=== PATIENT | female | born 1985 | race Caucasian/White ===

== ENCOUNTER 2025-03-15 13:48 | Outpatient (AMB) | payer MEDICAID, SELFPAY ==
[2025-03-15 13:58] VITALS: BP 160/95; PULSE 97; RESP 18; TEMP 36.2; O2SAT 97; BMI 20.9
--- NOTE | 2025-03-15 13:58 | GYNCLNT_ITS ---
Vital Signs 03/15/25 13:58 Height 1.63 m Height Method Stated Weight 55.338 kg Weight Measurement Method Standing Scale BMI 20.9 BP 160/95 H Blood Pressure Source Automatic Cuff Blood Pressure Location Left Upper Arm Position Sitting Respiration 18 Pulse 97 Pulse Source Monitor Temp 97.2 F Temp Source Oral Pulse Oximetry (%) 97 Oxygen Delivery Method Room Air Allergies/Home Meds Allergies & Medications Allergies No Known Allergies Allergy (Verified 03/15/25 13:59) Medication Reconciliation empagliflozin 25 mg tablet (Jardiance) 25 mg PO DAILY 02/07/23 [History Confirmed 03/15/25] gabapentin 600 mg tablet 600 mg PO DAILY 02/07/23 [History Confirmed 03/15/25] glimepiride 4 mg tablet 4 mg PO DAILY 02/07/23 [History Confirmed 03/15/25] sitagliptin phosphate 50 mg-metformin 1,000 mg tablet (Janumet) 1 tab PO BID 02/07/23 [History Confirmed 03/15/25] hydrocodone 5 mg-acetaminophen 300 mg tablet 1 tab PO Q6H PRN pain #10 tabs 02/10/23 [Rx Confirmed 03/15/25] morphine 15 mg tablet,extended release (MS Contin) 15 mg PO Q12H #14 tabs 02/13/23 [Rx Confirmed 03/15/25] cephalexin 500 mg capsule 500 mg PO TID #30 caps 04/18/23 [Rx Confirmed 03/15/25] Intake Visit Data Collection New Patient or Established: Established Patient (seen at [facility] within 3 years) Reason for Visit:: Abnormal bleeding, desire for surgery, discomfort and tightness in pelvic area Seen by Clinical Staff ONLY (RN/MA): No Silk Printer Required: No Do You Feel Safe at Home: Yes Authorities Contacted: N/A PCP or OBGYN visit in last 3 months: No Hx Now: No Are you currently on any form of Control: No Last menstrual period: 02/12/25 Pain Present Currently: No Pain Scale Used: Valentin-Ramsey/Numerical Pain scale:: 0 Smoking Status Smoking Status: Never smoker 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 1. Little interest or pleasure in doing things: not at all 2. Feeling down, depressed, or hopeless: not at all Total score: 0 PHQ-9 3. Trouble falling or staying asleep, or sleeping too much: Not at all 4. Feeling tired or having little energy: Not at all 5. Poor appetite or overeating: Not at all 6. Feeling bad about yourself - or that you are a failure or have let yourself or your family down: Not at all 7. Trouble concentrating on things, such as reading the newspaper or watching television: Not at all 8. Moving or speaking so slowly that other people could have noticed? - Or the opposite - being so fidgety or restless that you have been moving around a lot more than usual: not at all 9. Thoughts that you would be better off or of hurting yourself in some way: Not at all Total score: 0 If you checked off any problems, how difficult have these problems made it for you to do your work, take care of things at home, or get along with other people?: not difficult at all Source: Developed by Drs. Nguyễn Holland, Zahira Cortez, Get Beal and colleagues, with an educational watson from [employer]. Depression screen completed yes Social History Living Situation History Lives With: Family Housing: Apartment Housing Other:: Lives with and children Tobacco History Smoking Status: Never smoker Second Hand Smoke Exposure: No Alcohol History Alcohol Intake: Never Domestic Abuse History Do You Feel Safe at Home: Yes History of Present Illness ROXANNA Fonseca, a 40-year-old female with a complex medical history including type 2 diabetes, chronic kidney disease, and hypertension, presents for follow-up regarding abnormal uterine bleeding and to discuss surgical options. The patient reports experiencing daily spotting, which she describes as a little spot that decreases slightly each day. She expresses a desire to proceed with surgery for her gynecological issues. The patient reports feeling discomfort and tightness in her lower abdominal area. She has a history of multiple abdominal surgeries, including C-sections and laparoscopic procedures for ovarian cysts and endometriosis, which have resu lted in significant adhesions. Due to these adhesions, the clinician explains that a laparoscopic approach is no longer feasible, and an open abdominal surgery will be necessary to remove the uterus and ovaries. Marian's overall health status appears stable, with no reported changes in her chronic conditions. She continues to manage her anemia, which was mentioned as an ongoing concern. The patient is advised to consult with her primary care physician at [facility] to optimize her health and adjust medications as needed in preparation for the proposed major surgery. 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 Genitourinary: Positive for daily spotting. Musculoskeletal: Positive for tightness in lower abdomen. Exam General General Appearance: alert, in no apparent distress and healthy appearing Head Head exam: atraumatic Neck Neck exam: Present normal inspection and trachea midline Chest Chest inspection: Present normal inspection and symmetric chest wall rise External exam: Present normal external exam; Absent tenderness Neuro Neurological exam: Present oriented X3 Psych Psychiatric exam: Present normal affect and normal mood Office Procedures OB Clinic LOC & Office Proc's Nursing/Assessment Patient Status: Established Patient OB Clinic Nursing Assessment: BP Monitoring, Medication Reconciliation, Update PMH in EMR and Vital Signs OB Clinic Coordination of Care: Complex Care and Chronic Disease 1-5, Consent,records obtained, informed consent, Education Simp Pt/Fam, Lab and Imaging orders, Results/Orders obtained and Staff clarify orders Established Patient Charge Established Patient Point Assignment: 120 Established Patient Point Charge: EP Level 4 (120-155) Assessment & Plan Diagnosis / Problem List (1) Chronic hyperglycemia: Status: Acute (2) Type 2 diabetes mellitus with other diabetic ophthalmic complication: Status: Acute (3) Type 2 diabetes mellitus with diabetic polyneuropathy: Status: Acute (4) Chronic kidney disease, unspecified: Status: Acute (5) Vitamin D deficiency, unspecified: Status: Acute (6) Diverticulosis of large intestine without perforation or abscess without bleeding: Status: Acute (7) Umbilical hernia without obstruction or gangrene: Status: Acute (8) Endometriosis determined by laparoscopy: Status: Acute Plan Marian, a 40-year-old female with multiple medical comorbidities including type 2 diabetes, chronic kidney disease, and hypertension, presents with abnormal uterine bleeding and is considering hysterectomy. Abnormal Uterine Bleeding Assessment: Patient reports daily spotting. Previous laparoscopic surgery revealed significant pelvic adhesions requiring assistance from a general surgeon. Given the complex surgical history and extensive adhesions, a laparoscopic approach is no longer feasible. The patient expresses a desire to proceed with surgery despite the increased complexity. Plan: - Proceed with abdominal hysterectomy and bilateral salpingo-oophorectomy - Consult with general surgeon (Dr. Garcia) for intraoperative assistance - Perform vertical midline incision for improved surgical access - Obtain preoperative clearance from primary care physician - Order preoperative laboratory tests including hormone levels - Await insurance approval for the surgical procedure - Schedule follow-up appointment after PCP clearance for surgical planning Multiple Medical Comorbidities Assessment: Patient has a complex medical history including type 2 diabetes mellitus, chronic kidney disease, hypertension, depression, diabetic retinopathy, diverticulosis, anemia, umbilical hernia, diabetic polyneuropathy, gastroesophageal reflux disease, and liver dysfunction. These conditions increase the perioperative risk and require careful preoperative optimization. Plan: - Refer patient to primary care physician for preoperative medical optimization - Instruct patient to inform PCP about planned major surgery for medication adjustments and further recommendations - Await medical clearance before proceeding with surgical scheduling Intrauterine Device (IUD) Assessment: Patient has an existing IUD in place. Given the planned hysterectomy, removal of the IUD is not urgently required. Plan: - Defer IUD removal until time of hysterectomy
== END 2025-03-15 14:15 | disposition home or self-care (01) ==
LOC: HODSOBC 13:48
PROVIDERS: PCP Family Medicine; Referring Provider Family Medicine; Supervising Provider Obstetrics & Gynecology; Visit Provider Obstetrics & Gynecology
DX: N80.9 Endometriosis, unspecified (principal); N93.9 Abnormal uterine and vaginal bleeding, unspecified; E11.65 Type 2 diabetes mellitus with hyperglycemia; E11.42 Type 2 diabetes mellitus with diabetic polyneuropathy; E11.22 Type 2 diabetes mellitus with diabetic chronic kidney disease; N18.9 Chronic kidney disease, unspecified; E55.9 Vitamin D deficiency, unspecified; K57.30 Diverticulosis of large intestine without perforation or abscess without bleeding; K42.9 Umbilical hernia without obstruction or gangrene; I12.9 Hypertensive chronic kidney disease with stage 1 through stage 4 chronic kidney disease, or unspecified chronic kidney disease; E11.319 Type 2 diabetes mellitus with unspecified diabetic retinopathy without macular edema; Z87.42 Personal history of other diseases of the female genital tract; Z97.5 Presence of (intrauterine) contraceptive device; Z79.84 Long term (current) use of oral hypoglycemic drugs; Z79.899 Other long term (current) drug therapy; Z98.890 Other specified postprocedural states
CPT/HCPCS: 99213; 99214; G0463

== ENCOUNTER 2025-04-19 13:48 | Outpatient (AMB) | payer MEDICAID, SELFPAY ==
[2025-04-19 14:20] VITALS: BP 128/80; PULSE 92; RESP 17; TEMP 36.6; O2SAT 99; BMI 20.5
--- NOTE | 2025-04-19 14:20 | GYNCLNT_ITS ---
Vital Signs 04/19/25 14:20 Height 1.63 m Height Method Stated Weight 54.488 kg Weight Measurement Method Standing Scale BMI 20.5 BP 128/80 Blood Pressure Source Automatic Cuff Blood Pressure Location Right Upper Arm Position Sitting Respiration 17 Pulse 92 Pulse Source Monitor Temp 97.9 F Temp Source Temporal Artery Scan Pulse Oximetry (%) 99 Oxygen Delivery Method Room Air Allergies/Home Meds Allergies & Medications Allergies No Known Allergies Allergy (Verified 04/19/25 16:49) Medication Reconciliation empagliflozin 25 mg tablet (Jardiance) 25 mg PO DAILY 02/07/23 [History Confi rmed 04/19/25] ergocalciferol (vitamin D2) 1,250 mcg (50,000 unit) capsule 50,000 unit PO QWEEK 04/18/25 [History Confirmed 04/19/25] ferrous sulfate 325 mg (65 mg iron) tablet (FeroSul) 325 mg PO QDAY 04/18/25 [History Confirmed 04/19/25] gabapentin 100 mg capsule 200 mg PO Q8H 04/18/25 [History Confirmed 04/19/25] sitagliptin phosphate 50 mg-metformin 1,000 mg tablet (Janumet) 1 tab PO BID 04/18/25 [History Confirmed 04/19/25] vitamin B complex-vitamin C-folic acid 0.8 mg tablet (Nephro-Jacinto) 1 tab PO QDAY 04/18/25 [History Confirmed 04/19/25] Intake Visit Data Collection New Patient or Established: Established Patient (seen at [facility] within 3 years) Reason for Visit:: PRE-OP Seen by Clinical Staff ONLY (RN/MA): No 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 Do You Feel Safe at Home: Yes Authorities Contacted: N/A PCP or OBGYN visit in last 3 months: Yes Date of Last PCP or OBGYN visit: 04/18/25 Hx Now: No Are you currently on any form of Control: No Last menstrual period: 01/04/25 Pain Present Currently: Yes Pain Location: Abdomen Pain Scale Used: Valentin-Ramsey/Numerical Pain scale:: 7 Smoking Status Smoking Status: Former smoker 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 Menstrual regularity: regular Flow: heavy Monthly: Yes How many days does period last: 6 Age at menarche: 9 Currently sexually active: No If not currently sexually active, have you ever been sexually active: Yes 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 1. Little interest or pleasure in doing things: not at all 2. Feeling down, depressed, or hopeless: not at all Total score: 0 PHQ-9 3. Trouble falling or staying asleep, or sleeping too much: Not at all 4. Feeling tired or having little energy: Not at all 5. Poor appetite or overeating: Not at all 6. Feeling bad about yourself - or that you are a failure or have let yourself or your family down: Not at all 7. Trouble concentrating on things, such as reading the newspaper or watching television: Not at all 8. Moving or speaking so slowly that other people could have noticed? - Or the opposite - being so fidgety or restless that you have been moving around a lot more than usual: not at all 9. Thoughts that you would be better off or of hurting yourself in some way: Not at all Total score: 0 If you checked off any problems, how difficult have these problems made it for you to do your work, take care of things at home, or get along with other people?: not difficult at all Source: Developed by Drs. Nguyễn Holland, Zahira Cortez, Get Beal and colleagues, with an educational watson from [employer]. 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 She has been cleared for surgery by Dr. Easley. The surgical approach has been discussed with the patient, explaining that a vertical incision will be made extending from below the belly button. This approach is preferred over a transverse incision to better visualize and address the patient's extensive scar tissue and adhesions from previous surgeries. The surgeon plans to remove the uterus and will attempt to preserve the ovaries, but may remove them if they appear abnormal during the procedure. She has been informed that she will likely stay in the hospital for two nights, with a planned discharge on Friday. However, it was noted that if her recovery progresses well, she might be discharged after one night. The patient has completed the necessary pre-registration process for the upcoming procedure. She is a 40-year-old female with an extensive surgical history including multiple laparoscopies. Review of Systems Review of Systems Systems Reviewed: All systems reviewed, normal except as documented Exam General General Appearance: alert, in no apparent distress and healthy appearing Head Head exam: atraumatic Neck Neck exam: Present normal inspection and trachea midline Chest Chest inspection: Present normal inspection and symmetric chest wall rise External exam: Present normal external exam; Absent tenderness Neuro Neurological exam: Present oriented X3 Psych Psychiatric exam: Present normal affect and normal mood Office Procedures OB Clinic LOC & Office Proc's Nursing/Assessment Patient Status: Established Patient OB Clinic Nursing Assessment: Medication Reconciliation, Update PMH in EMR and Vital Signs OB Clinic Coordination of Care: Complex Care and Chronic Disease 1-5, Consent,records obtained, informed consent, Education Simp Pt/Fam and Staff clarify orders Established Patient Charge Established Patient Point Assignment: 85 Established Patient Point Charge: EP Level 3 (80-115) Assessment & Plan Diagnosis / Problem List (1) Abnormal uterine and vaginal bleeding, unspecified: Status: Acute (2) Pelvic and perineal pain: Status: Acute (3) Umbilical hernia without obstruction or gangrene: Status: Acute Plan Scheduled Total Abdominal Hysterectomy Plan: - Perform total abdominal hysterectomy on 04/21/2025. - Utilize vertical midline incision for better visualization and dissection. - Attempt to preserve ovaries, remove if pathology noted intraoperatively. - Consult Dr. Garcia (general surgery) intraoperatively if needed. - Anticipate 2-night hospital stay, with possible discharge after one night if patient progresses well. - Patient to arrive NPO (except for coffee, which is permitted). - Discharge anticipated for Friday (04/23/2025).
== END 2025-04-19 15:18 | disposition home or self-care (01) ==
LOC: HODSOBC 13:48
PROVIDERS: PCP Obstetrics & Gynecology; Referring Provider Obstetrics & Gynecology; Supervising Provider Obstetrics & Gynecology; Visit Provider Obstetrics & Gynecology
DX: N93.9 Abnormal uterine and vaginal bleeding, unspecified (principal); K42.9 Umbilical hernia without obstruction or gangrene; R10.2 Pelvic and perineal pain
CPT/HCPCS: 99213; G0463

== ENCOUNTER 2025-04-21 07:05 | Inpatient (IN) | payer MEDICAID, SELFPAY ==
--- NOTE | 2025-04-18 07:00 | EKG_ITS ---
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
[2025-04-18 11:31] VITALS: BMI 20.7
[2025-04-18 12:38] LABS: Basophils % (Auto) 1 % (0-2.5); Eosinophils # (Auto) 0.3 Thou/mm3 (0.0-0.5); Eosinophils % (Auto) 5 % (0-10); Hematocrit 26.6 % (36.0-46.0); Immature Granulocytes % (Auto) 0 % (0-0); Immature Granulocytes Auto 0.02 Thou/mm3 (0.00-0.00); Lymphocytes % (Auto) 28 % (10-50); Mean Corpuscular HGB Conc 32.7 g/dl (31.0-37.0); Mean Corpuscular Hemoglobin 30.2 pg (25.0-35.0); Mean Corpuscular Volume 92 fL (80-100); Monocytes # (Auto) 0.5 Thou/mm3 (0.0-0.8); Monocytes % (Auto) 7 % (0-12); Neutrophils # (Auto) 4.1 Thou/mm3 (1.8-7.7); Neutrophils % (Auto) 60 % (37-80); Nucleated Red Blood Cell % 0 /100 WBC (0); Platelet Count 261 Thou/mm3 (140-440); RDW Standard Deviation 47.8 fL (36.4-46.3); Red Blood Count 2.88 Miln/mm3 (4.00-5.20)
[2025-04-18 12:46] LABS: Alanine Aminotransferase 16 U/L (10-49); Albumin, Serum 4.3 gm/dL (3.5-5.0); Alkaline Phosphatase 56 U/L (46-116); Anion Gap 10 (7-16); Aspartate Amino Transferase 18 U/L (0-34); BUN/Creatinine Ratio 16 Ratio (12-20); Bilirubin,Total 0.3 mg/dL (0.3-1.2); Blood Urea Nitrogen 21 mg/dL (9-23); Calcium 8.9 mg/dL (8.3-10.6); Calcium (Corrected) 8.9 mg/dL (8.5-10.1); Carbon Dioxide 23.5 mMol/L (20.0-31.0); Chloride 109 mMol/L (98-107); Creatinine (Component) 1.3 mg/dL (0.6-1.3); Estimated Creatinine Clearance 48.7 mL/min (>60); Globulin 2.1 gm/dL (2.3-3.5); Glucose 85 mg/dL (74-106); Osmolality,Calculated 285 (275-295); Potassium 5.1 mMol/L (3.4-5.1); Sodium 142 mMol/L (136-145); Total Protein 6.4 gm/dL (5.7-8.2); eGFR 53 See Note
[2025-04-18 12:47] LABS: HCG,Qualitative Serum Negative
[2025-04-18 13:05] LABS: Hemoglobin 8.7 g/dL (12.0-16.0)
[2025-04-21] VITALS (25 sets, daily range): BP systolic 106–183; BP diastolic 73–111; PULSE 88–110; RESP 12–20; TEMP 36.1–37.1; O2SAT 98–100; BMI 20.2; BMI 19.6
--- NOTE | 2025-04-21 13:26 | SUR.PHASEI ---
1326: Pt. AAOx4, pt. hypertensive, hydralazine given at bedside by anesthesia provider, breathing unlabored, complaint of pain, complaint of nausea, will medicate pt., dressing to ABD CDI, no active bleed noted, goldstein catheter in place draining clear yellow urine, peripad in place CDI, report recieved from MD Nelson and Vinay FLORES.
--- NOTE | 2025-04-21 13:37 | ESOP_ITS ---
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 Identity was confirmed using two patient identifiers, and she was placed on the operating table. General anesthesia was administered. The patient was secured and positioned in the supine position. The abdomen and perineum were prepped and draped in the usual sterile fashion. A Adames catheter was placed for continuous drainage. A surgical timeout was completed. A vertical midline skin incision was made with a scalpel and carried through the subcutaneous fat to the rectus fascia. The rectus fascia was incised in the midline and extended superiorly and inferiorly using Swanson scissors. The fascia was then dissected off the underlying rectus muscles, and the rectus bellies were to identify the peritoneum, which was entered bluntly. The peritoneal opening was gently stretched to allow access into the abdominal cavity. An Charlie O-ring retractor was placed and the bowel was packed out of the operative field. Upon entering the peritoneal cavity, a significant amount of intraperitoneal adhesions involving loops of bowel, thickened peritoneum, and adnexal structures was encountered. Approximately 40 minutes were spent carefully dissecting these adhesions to safely mobilize the bowel and adnexa in order to access the uterus. The uterus was then grasped with a double-tooth tenaculum. A significant amount of bladder adhesion was noted, and dissection was carried out to divide the bladder adhesions and expose the uterovesical peritoneum. With the uterus on traction, dissection began on the right side. The utero- ovarian ligament was divided. The fallopian tube was dissected and divided separately. The round ligament was divided, and both anterior and posterior leaves of the broad ligament were . The anterior leaf was dissected to the bladder reflection to create the bladder flap, and the posterior leaf was extended down to the uterosacral ligament. Subsequent steps involved skeletonizing, occluding, and dividing the uterine artery, progressing down to the cervix. The same dissection was performed on the contralateral side. Once the cervix was reached, a pair of Ramon clamps were placed across the cervix, and the uterus was amputated and sent to pathology. The vaginal angles were tagged using 0 Vicryl sutures. The vaginal cuff was closed using 0 Vicryl in a running fashion, with the angles tied together to reinforce the uterosacral ligaments. At this point, significant bleeding was noted from the vaginal stump. Hemostasis was achieved with [id number] sutures, and the bladder peritoneum was overlaid and secured over the vaginal cuff using 3-0 Vicryl. The cuff was copiously irrigated and inspected for hemostasis. Surgicel was placed for reinforcement. All instruments were withdrawn, bowel packing was removed, and the Charlie retractor was taken out. The peritoneum was closed using 2-0 Vicryl. Rectus mus cles were reapproximated with 3-0 Vicryl. The rectus fascia was closed in a running fashion using 0 Vicryl. The subcutaneous tissue was irrigated, and the fat layer was closed with 3-0 plain gut. The skin was closed with kelly. The skin was cleaned and a sterile pressure dressing applied. The patient was undraped, general anesthesia was reversed, and she was transferred to recovery in stable and awake condition. She tolerated the procedure well, and no acute complications were encountered. Instrument, sponge, and lap counts were correct ?2. Specimen: uterus, left tube and right tube Estimated blood loss (ml): 300 Complications: none Surgical staff Operation Date: 04/21/25 10:45 <No data on this case meets the specified criteria> Diagnosis Discharge Diagnosis (1) Abnormal uterine and vaginal bleeding, unspecified: Status: Acute (2) Pelvic and perineal pain: Status: Acute (3) Umbilical hernia without obstruction or gangrene: Status: Acute (4) Diverticulosis of large intestine without perforation or abscess without bleeding: Status: Acute (5) Chronic kidney disease, unspecified: Status: Acute Problem List Completed Was Problem List Reviewed/Reconciled?: Yes
--- NOTE | 2025-04-21 13:40 | SUR.OPER ---
Late entry: Pt to OR-3 from [facility] with PRBC unit hanging and infusing. Unit was continued and completed in O.R.
[2025-04-21] MEDS: METOCLOPRAMIDE INJ 5 MG/ML VIAL 2 ML 7.5 MG IVP (13:43)
[2025-04-21] MEDS: HYDROmorphone INJ 2 MG/ML VIAL 0.5 MG IVP ×3 (13:50→14:31)
[2025-04-21] MEDS: KETOROLAC INJ 30 MG/ML VIAL 15 MG IVP (14:01)
[2025-04-21] MEDS: SODIUM CHLORIDE 0.9% 1000 ML 1,000 ML 200 ML IV ×2 (14:06→18:37)
[2025-04-21 14:35] LABS: Basophils # (Auto) 0.1 Thou/mm3 (0.0-0.2); Basophils % (Auto) 0 % (0-2.5); Eosinophils # (Auto) 0.2 Thou/mm3 (0.0-0.5); Eosinophils % (Auto) 1 % (0-10); Hematocrit 31.6 % (36.0-46.0); Hemoglobin 10.5 g/dL (12.0-16.0); Immature Granulocytes % (Auto) 1 % (0-0); Immature Granulocytes Auto 0.08 Thou/mm3 (0.00-0.00); Lymphocytes # (Auto) 2.3 Thou/mm3 (1.0-4.8); Lymphocytes % (Auto) 14 % (10-50); Mean Corpuscular HGB Conc 33.2 g/dl (31.0-37.0); Mean Corpuscular Hemoglobin 30.3 pg (25.0-35.0); Mean Corpuscular Volume 91 fL (80-100); Monocytes # (Auto) 0.6 Thou/mm3 (0.0-0.8); Monocytes % (Auto) 3 % (0-12); Neutrophils # (Auto) 13.7 Thou/mm3 (1.8-7.7); Neutrophils % (Auto) 81 % (37-80); Nucleated Red Blood Cell % 0 /100 WBC (0); Platelet Count 231 Thou/mm3 (140-440); RDW Standard Deviation 46.4 fL (36.4-46.3); Red Blood Count 3.47 Miln/mm3 (4.00-5.20); White Blood Count 16.9 Thou/mm3 (3.6-11.0)
[2025-04-21] MEDS: fentaNYL CIT INJ 50 mCg/ML AMP 2ML IVP ×2 (14:44→16:05)
--- NOTE | 2025-04-21 16:30 | SUR.PHASEI ---
1630: Pt. AAOx4, vitals stable, breathing unlabored, no complaint of pain or nausea, dressing to ABD CDI, no active bleed noted, ABD Binder in place, goldstein catheter in place draining clear yellow urine, pt. tolerated bites of cristiano well, gave report to Erma FLORES prior to transfer to room 380. Family made aware of transfer to room, pt. transferred with all personal belongings.
[2025-04-21] MEDS: ONDANSETRON INJ 2 MG/ML INJ 2 ML 4 MG IV (16:55)
[2025-04-21] MEDS: ACETAMINOPHEN IVPB 1,000 MG/100 ML VIAL 250 MG IV ×2 (18:36→23:57)
[2025-04-21] MEDS: ceFAZolin/D5W 2 GM IV 2 GM/100 ML BAG IV (19:29)
[2025-04-21] MEDS: HYDROMORPHONE HCL 2 MG TABLET PO (20:23)
[2025-04-21] MEDS: GABAPENTIN 100 MG CAPSULE 200 MG PO (21:37)
[2025-04-22] VITALS (16 sets, daily range): BP systolic 131–179; BP diastolic 81–113; PULSE 100–114; RESP 16–97; TEMP 36.2–36.9; O2SAT 97–99
[2025-04-22] MEDS: HYDROMORPHONE HCL 2 MG TABLET PO ×2 (03:11→08:35)
[2025-04-22] MEDS: ceFAZolin/D5W 2 GM IV 2 GM/100 ML BAG IV ×3 (03:15→20:05)
[2025-04-22] MEDS: SODIUM CHLORIDE 0.9% 1000 ML 1,000 ML 200 ML IV (03:21)
[2025-04-22] MEDS: ONDANSETRON INJ 2 MG/ML INJ 2 ML 4 MG IV ×3 (03:50→16:25)
[2025-04-22] MEDS: GABAPENTIN 100 MG CAPSULE 200 MG PO ×2 (05:46→13:48)
[2025-04-22] MEDS: ACETAMINOPHEN IVPB 1,000 MG/100 ML VIAL 250 MG IV ×2 (05:47→13:49)
[2025-04-22 05:51] LABS: Basophils % (Auto) 0 % (0-2.5); Eosinophils % (Auto) 0 % (0-10); Hematocrit 23.6 % (36.0-46.0); Immature Granulocytes % (Auto) 1 % (0-0); Immature Granulocytes Auto 0.07 Thou/mm3 (0.00-0.00); Lymphocytes # (Auto) 1.1 Thou/mm3 (1.0-4.8); Lymphocytes % (Auto) 7 % (10-50); Mean Corpuscular HGB Conc 33.9 g/dl (31.0-37.0); Mean Corpuscular Volume 92 fL (80-100); Monocytes # (Auto) 1.2 Thou/mm3 (0.0-0.8); Monocytes % (Auto) 8 % (0-12); Neutrophils # (Auto) 12.6 Thou/mm3 (1.8-7.7); Neutrophils % (Auto) 84 % (37-80); Nucleated Red Blood Cell % 0 /100 WBC (0); Platelet Count 181 Thou/mm3 (140-440); RDW Standard Deviation 47.4 fL (36.4-46.3); Red Blood Count 2.58 Miln/mm3 (4.00-5.20); White Blood Count 14.9 Thou/mm3 (3.6-11.0)
[2025-04-22 06:01] LABS: Anion Gap 9 (7-16); BUN/Creatinine Ratio 15 Ratio (12-20); Blood Urea Nitrogen 19 mg/dL (9-23); Calcium 7.5 mg/dL (8.3-10.6); Carbon Dioxide 17.6 mMol/L (20.0-31.0); Chloride 114 mMol/L (98-107); Creatinine (Component) 1.3 mg/dL (0.6-1.3); Estimated Creatinine Clearance 47.6 mL/min (>60); Glucose 133 mg/dL (74-106); Osmolality,Calculated 285 (275-295); Potassium 4.8 mMol/L (3.4-5.1); Sodium 141 mMol/L (136-145); eGFR 53 See Note
--- NOTE | 2025-04-22 06:21 | PC.NURSE ---
Total urine output for this shift is 650 ml. Adames catheter removed at 0620, Pt tolerated well.
[2025-04-22] MEDS: FERROUS SULF 325 MG TABLET PO (08:35)
[2025-04-22] MEDS: VIT B12/Vit C/FA (Nephrovite) TABLET 1 TAB PO (08:35)
[2025-04-22] MEDS: DOCUSATE SOD 100 MG CAPSULE PO (08:35)
[2025-04-22] MEDS: KETOROLAC INJ 30 MG/ML VIAL IVP (10:17)
--- NOTE | 2025-04-22 10:58 | CHAP ---
Patient expressed gratitude for visit and prayer. Visited with Ezekiel who spoke Micronesian and prayed.
--- NOTE | 2025-04-22 11:28 | PC.SS ---
Marian Barboza is a 40-year-old female admitted to Med Surg for [facility] [id number]. SS conducted bedside contact with the patient to complete initial assessment and to discuss discharge planning. Role and reason explained. Patient confirmed demographic information. Patient identifies dtr Heidy Villegasus [phone] as her surrogate decision maker. Pt states she is able to complete all ADL?s independently. No need for any source of DME. Pts PCP is Dr. Chang [facility]. Pharmacy of choice is [facility] in [place]. Discharge options discussed and the pt wishes to return home.? Family will provide transportation upon DC. No further intervention required at this time, social insurance administrator would be available to address any further concerns. DC Plan: Home Contact: Heidy Long Address: Confirmed on face sheet PCP: Elvi
--- NOTE | 2025-04-22 12:47 | PD.GYNPROG ---
Documentation for date of: 04/22/25 [employer] Subjective Subjective Interval history: Patient doing well this morning. Evaluated at bedside. Has significant pain even on the current regimen, reports minimal appetite. RBC and FFP was ordered yesterday has still not been transfused Morning hemoglobin is 8.5 which is appropriate to compensate for her postoperative blood loss Urine output good and Adames catheter has been removed Exam Vital Signs Temp Pulse Resp BP Pulse Ox O2 Del Method O2 Flow Rate 98.0 F 107 H 17 159/102 H 98 Room Air 2 04/22/25 10:56 04/22/25 10:56 04/22/25 10:41 04/22/25 10:56 04/22/25 10:56 04/22/25 08:00 04/22/25 09:45 Constitutional Constitutional: no acute distress Routine HEENT Exam Head: Present normocephalic and atraumatic Eye: Present EOMI and PERRL ENT: Present mucous membranes moist Routine Neck Exam Neck: Present supple and trachea midline Routine Respiratory Exam Respiratory: Present chest non-tender, lungs clear, normal breath sounds and no resp distress Routine Cardiovascular Exam Cardiovascular: Present RRR Routine Abdominal Exam Abdominal: Present soft and normoactive bowel sounds Routine Extremities Exam Extremities: Present full ROM Routine Skin Exam Skin: Present intact and dry Routine Neurological Exam Neurological: Present alert, oriented X3 and CN II-XII intact Routine Psychiatric Exam Psychiatric: Present normal affect and normal thought process Urinary Catheter Management Cath placed during this visit: no [employer] - PN: Obj Data Labs 04/22/25 05:07 04/22/25 05:07 Labs: Laboratory Results - last 24 hr 04/20/25 04/21/25 04/22/25 12:48 13:50 05:07 WBC 16.9 H D 14.9 H RBC 3.47 L 2.58 L Hgb 10.5 L D 8.0 L D Hct 31.6 L 23.6 L MCV 91 92 MCH 30.3 31.0 MCHC 33.2 33.9 RDW Std Deviation 46.4 H 47.4 H Plt Count 231 D 181 D Neut % (Auto) 81 H 84 H Lymph % (Auto) 14 7 L [place] % (Auto) 3 8 Eos % (Auto) 1 0 Baso % (Auto) 0 0 Neut # (Auto) 13.7 H 12.6 H Lymph # (Auto) 2.3 1.1 [place] # (Auto) 0.6 1.2 H Eos # (Auto) 0.2 0.0 Baso # (Auto) 0.1 0.0 Immature Gran # (Auto) 0.08 H 0.07 H Absolute Nucleated RBC 0.00 0.00 Immature Gran % 1 H 1 H Nucleated RBC % 0 0 Sodium 141 Potassium 4.8 Chloride 114 H Carbon Dioxide 17.6 L Anion Gap 9 BUN 19 Creatinine 1.3 Estim Creat Clear Calc 47.6 L eGFR 53 L BUN/Creatinine Ratio 15 Glucose 133 H Calculated Osmolality 285 Calcium 7.5 L Blood Type O Positive Antibody Screen NEGATIVE Crossmatch See Detail Blood Bank Wristband ID Yes Blood Bank Comment FFP Ready [employer] - A/P Assessment and plan (1) Abnormal uterine and vaginal bleeding, unspecified: Status: Acute Assessment and plan: Patient is postoperative day #1 status post vertical laparotomy for total abdominal hysterectomy and bilateral salpingectomy Patient has multiple medical comorbidities, she has significant amount of pain Will encourage out of bed and ambulation, will get physical therapy involved as needed Continue to monitor bowel function, possible discharge tomorrow or the day after depending on how she progresses (2) Pelvic and perineal pain: Status: Acute (3) Umbilical hernia without obstruction or gangrene: Status: Acute (4) Diverticulosis of large intestine without perforation or abscess without bleeding: Status: Acute (5) Chronic kidney disease, unspecified: Status: Acute Postoperative Procedures: Procedures Operation Date: 04/21/25 10:45 Actual Procedure Side Surgeon p Total abdominal hysterectomy with left salpingectomy Left Octavio Reyes MD Time Spent With Patient Time: Total time spent is greater than 50% in coordination of care (as documented) at patient's floor/unit and/or counseling patient: Time with patient: less than 15 minutes
[2025-04-22] MEDS: hydrALAZINE HCL 10 MG TABLET 5 MG PO (14:29)
--- NOTE | 2025-04-22 14:35 | PC.NURSE ---
notified of pts BP 179/113 HR 103. new order received.
--- NOTE | 2025-04-22 14:58 | PC.SS ---
Rounding: Possible DC over weekend, encourage ambulation, will DC home upon DC
[2025-04-22] MEDS: HYDROmorphone INJ 2 MG/ML VIAL IVP ×2 (15:43→21:08)
--- NOTE | 2025-04-22 16:03 | ESCONSULT_ITS ---
<Statement entered by Summer Joy MD - 04/26/25 08:57> I reviewed above note and agree with findings and plans. I have also personally examined the patient with medicine team and went over assessment and plan with medical team including nutrition intern and resident physician. HPI Data of Consult Requesting Physician: Octavio Reyes MD Admitting Provider: Octavio Reyes MD Attending Provider: Octavio Reyes MD Primary Care Provider: Cory Chang MD Consult Narrative Reason for consult: management of HTN History of present illness: Ms. Acosta is a 40 year old female past medical history significant for type 2 diabetes, hypertension, anemia and endometriosis. Patient was admitted for total abdominal hysterectomy on 04/21/2025. Patient is postop day 1 of total abdominal hysterectomy with bilateral salpingectomy. Patient is currently being managed by [facility] team including Dr. Reyes. Patient is in postoperative pain being managed with IV and oral pain meds by her primary team. Other than postoperative pain patient does not have any complaints states that she is feeling better tolerating oral diet. Per patient she has history of hypertension and was on amlodipine 10 mg daily however for the past 1 month she stopped taking the medication because she was told by her primary care that she no longer needs it. For diabetes patient is currently taking Jardiance and Janumet. Patient states she also takes ferrous sulfate 325 mg daily. Patient denies any chest pain, pressure, palpitations or shortness of breath. Hospitalist team is consulted for further management of primary hypertension. PMH: Non-insulin dependent type 2 diabetes, primary hypertension, anemia and endometriosis PSH: Left hip surgery, total hysterectomy with salpingectomy POD 1 Social history: Denies alcohol, tobacco or illicit drug use Home Meds: Amlodipine 10 mg daily (patient have not taken it for 1 month), Jardiance and Janumet cc:: cc: Octavio Reyes MD Review of Systems Review of Systems Systems Reviewed: All systems reviewed, normal except as documented Exam Vital Signs Temp Pulse Resp BP Pulse Ox O2 Del Method O2 Flow Rate 98.2 F 103 H 18 179/113 H 98 Room Air 2 04/22/25 14:06 04/22/25 14:29 04/22/25 14:06 04/22/25 14:29 04/22/25 12:00 04/22/25 12:00 04/22/25 09:45 Narrative Exam GENERAL: A&Ox3, middle age female, Awake and cooperate, Not in acute distress however appears to be in discomfort NEURO: no focal neurological deficits noted HEENT: Atraumatic, Normocephalic. mucous membranes moist. Eyes open, symmetrical, & clear HEART: Normal Heart Sounds LUNGS: Clear to auscultation with no wheezing or crackles. ABDOMEN: abdomen have post surgical bandage, abdomen is soft SKIN: No Rash or ecchymoses EXTREMITIES: No edema, tenderness, able to move all 4 extremities, pedal pulses palpated Results Labs 04/22/25 05:07 04/22/25 05:07 Labs: Short CBC 04/22/25 Range/Units 05:07 WBC 14.9 H (3.6-11.0) Thou/mm3 Hgb 8.0 L D (12.0-16.0) g/dL Hct 23.6 L (36.0-46.0) % Plt Count 181 D (140-440) Thou/mm3 BMP 04/22/25 05:07 Sodium 141 Potassium 4.8 Chloride 114 H Carbon Dioxide 17.6 L BUN 19 Creatinine 1.3 Glucose 133 H Calcium 7.5 L Quality Measures Quality Measures VTE prophylaxis Medications Home Medications and Allergies Home Medications ?Medication ?Instructions ?Recorded ?Confirmed ?Type empagliflozin 25 mg tablet 25 mg PO DAILY 02/07/23 History (Jardiance) ergocalciferol (vitamin D2) 1,250 50,000 unit PO QWEEK 04/18/25 04/19/25 History mcg (50,000 unit) capsule ferrous sulfate 325 mg (65 mg 325 mg PO QDAY 04/18/25 04/19/25 History iron) tablet (FeroSul) gabapentin 100 mg capsule 200 mg PO Q8H 04/18/2504/19 History sitagliptin phosphate 50 1 tab PO BID 04/18/25 History mg-metformin 1,000 mg tablet (Janumet) vitamin B complex-vitamin C-folic 1 tab PO QDAY 04/19/25 History acid 0.8 mg tablet (Nephro-Jacinto) Allergies Allergy/AdvReac Type Severity Reaction Status Date / Time No Known Allergies Allergy Verified 04/21/25 07:58 Visit Medications Diphenhydramine HCl (Diphenhydramine Inj 50 Mg/Ml Vial) 25 mg IV Q2HR PRN PRN Reason: ITCHING Stop: 05/21/25 12:13 Docusate Sodium (Docusate Sod 100 Mg Capsule) 100 mg PO QDAY [facility] Stop: 05/22/25 08:59 Last Admin: 04/22/25 08:35 Dose: 100 mg Ergocalciferol (Ergocalciferol (Vit D2) 50,000 Unit Cap (Non-Formulary)) 50,000 unit PO QWEEK [facility] Stop: 05/28/25 08:59 Ferrous Sulfate (Ferrous Sulf 325 Mg Tablet) 325 mg PO QDAY [facility] Stop: 05/22/25 08:59 Last Admin: 04/22/25 08:35 Dose: 325 mg Gabapentin (Gabapentin 100 Mg Capsule) 200 mg PO Q8HR [facility] Stop: 05/21/25 12:14 Last Admin: 04/22/25 13:48 Dose: 200 mg Hydromorphone HCl (Hydromorphone Inj 2 Mg/Ml Vial) 2 mg IVP Q3HR PRN PRN Reason: PAIN SCALE 7-10 (Severe Stop: 04/26/25 12:13 Last Admin: 04/22/25 15:43 Dose: 2 mg Hydromorphone HCl (Hydromorphone Hcl 2 Mg Tablet) 2 mg PO Q4HR PRN PRN Reason: PAIN SCALE 4-6 (Moderate Stop: 04/26/25 12:13 Last Admin: 04/22/25 08:35 Dose: 2 mg Promethazine HCl 25 mg/ Sodium (Chloride) 51 mls @ 2.5 mls/min IV Q6HR PRN PRN Reason: NAUSEA OR VOMITING Stop: 05/21/25 12:13 Cefazolin Sodium (Ancef 2gm Ivpb) 2 gm in 100 mls @ 100 mls/hr IV Q8H [facility] Stop: 04/28/25 19:29 Last Admin: 04/22/25 13:49 Dose: 100 mls/hr Home Medication- Please Speak With Patient Caregiver To Have Rx Brought To [facility] 25 mg PO DAILY [facility] Stop: 05/22/25 08:59 Last Admin: 04/22/25 08:36 Dose: Not Given Home Medication- Please Speak With Patient Caregiver To Have Rx Brought To [facility] 1 tab PO BID [facility] Stop: 05/21/25 20:59 Last Admin: 04/22/25 08:36 Dose: Not Given Ondansetron HCl (Ondansetron Inj 2 Mg/Ml Inj 2 Ml) 4 mg IV Q6HR PRN PRN Reason: NAUSEA OR VOMITING Stop: 05/21/25 12:13 Last Admin: 04/22/25 10:18 Dose: 4 mg Vitamin B Complex/Vit C/Folic Acid (Vit B12/Vit C/Fa (Nephrovite) Tablet) 1 tab PO QDAY DEVEN Stop: 05/22/25 08:59 Last Admin: 04/22/25 08:35 Dose: 1 tab Discontinued Medications Fentanyl Citrate (Fentanyl Cit Inj 50 Mcg/Ml Amp 2ml) 50 mcg IVP Q5MIN PRN PRN Reason: PAIN SCALE 4-10(Mod-Sev Stop: 04/21/25 14:56 Last Admin: 04/21/25 16:05 Dose: 50 mcg Hydralazine HCl (Hydralazine Inj 20 Mg/Ml Vial) 5 mg IV Q20MIN PRN PRN Reason: SEE COMMENTS Stop: 04/21/25 14:56 Hydralazine HCl (Hydralazine Hcl 10 Mg Tablet) 5 mg PO X1 ONE Stop: 04/22/25 14:19 Last Admin: 04/22/25 14:29 Dose: 5 mg Hydromorphone HCl (Hydromorphone Inj 2 Mg/Ml Vial) 0.5 mg IVP Q10MIN PRN PRN Reason: PAIN SCALE 4-10(Mod-Sev Stop: 04/21/25 14:56 Last Admin: 04/21/25 14:31 Dose: 0.5 mg Lactated Ringer's (Lactated Ringers) 1,000 mls @ 20 mls/hr IV .Q24H ONE Stop: 04/22/25 05:59 Sodium Chloride (Ns) 1,000 mls @ 20 mls/hr IV .Q24H ONE Stop: 04/22/25 05:59 Last Admin: 04/21/25 14:41 Dose: Not Given Acetaminophen (Ofirmev Inj) 1,000 mg in 100 mls @ 250 mls/hr IV Q6HR DEVEN Stop: 04/22/25 12:23 Last Infusion: 04/22/25 14:13 Dose: Infused Sodium Chloride (Ns) 1,000 mls @ 200 mls/hr IV .Q5H DEVEN Stop: 05/21/25 12:14 Last Admin: 04/22/25 03:21 Dose: 200 mls/hr Ketorolac Tromethamine (Ketorolac Inj 30 Mg/Ml Vial) 15 mg IVP X1 ONE Stop: 04/21/25 13:58 Last Admin: 04/21/25 14:01 Dose: 15 mg Ketorolac Tromethamine (Ketorolac Inj 30 Mg/Ml Vial) 30 mg IVP X1 ONE Stop: 04/22/25 10:11 Last Admin: 04/22/25 10:17 Dose: 30 mg Magnesium Hydroxide (Milk Of Magnesia Susp 30 Ml Udc) 30 ml PO X1 ONE Stop: 04/21/25 12:15 Last Admin: 04/21/25 18:20 Dose: Not Given Meperidine HCl (Meperidine Inj 50 Mg/Ml Vial) 12.5 mg IVP Q5M PRN PRN Reason: SHIVERING Stop: 04/21/25 14:56 Metoclopramide HCl (Metoclopramide Inj 5 Mg/Ml Vial 2 Ml) 7.5 mg IVP X1 PRN; Protocol PRN Reason: NAUSEA OR VOMITING Stop: 04/21/25 14:58 Last Admin: 04/21/25 13:43 Dose: 7.5 mg Metoprolol Tartrate (Metoprolol Tartrate Inj 1 Mg/Ml Amp 5 Ml) 1 mg IVP Q5MIN PRN PRN Reason: TACHYCARDIA Stop: 04/21/25 14:58 Midazolam HCl (Midazolam Inj 1 Mg/Ml Vial 2 Ml) 1 mg IVP Q5MIN PRN PRN Reason: ANXIETY Stop: 04/21/25 14:56 Assessment & Plan Plan Ms. Acosta is a 40 year old female past medical history significant for type 2 diabetes, hypertension, anemia and endometriosis. Patient was admitted for total abdominal hysterectomy on 04/21/2025. Patient is postop day 1 of total abdominal hysterectomy with bilateral salpingectomy. Hospitalist team is consulted for further management of primary hypertension. #Primary Hypertension - Patient's blood pressure is 179/113 and heart rate 103 - Patient received hydralazine 5 mg p.o. x 1 - Will resume patient's home amlodipine 10 mg daily and continue to monitor blood pressure #[id number] type 2 diabetes - Blood glucose 133 and fingerstick is 117 - Patient's home Jardiance and Janumet is resumed by primary team - Will continue to monitor daily blood glucose and Accu-Cheks AC # Endometriosis status post total hysterectomy with salpingectomy POD 1 - Patient underwent total abdominal hysterectomy with bilateral salpingectomy on 04/21/[address] Reyes - Pain control is ordered - Remainder management as per primary team #Acute anemia #Normocytic anemia - Hemoglobin is 8.0, hematocrit 23.6, MCV 92 - Acute anemia is likely secondary to routine IntraOp blood loss plus hemodilution as patient received approximately 3 L of fluids -There are no signs of active bleeding from surgical site, no signs of intra- abdominal bleeding. -Will continue to monitor daily CBC, if Hgb drops <7, will transfuse pRBCs - Primary team resume patient's home ferrous sulfate 325 mg Health Maintenance Disposition: Medsurg POD1 DVT Prophylaxis: SCD QSHIFT GI Prophylaxis: Not indicated Diet: regular diet Lines: Peripheral lines Code status: Full Assessment and plan discussed with my attending physician Dr. Rufino Hi (PGY-1)- Internal medicine resident
[2025-04-22] MEDS: amLODIPine BESYLATE 5 MG TABLET 10 MG PO (17:27)
[2025-04-22] MEDS: JARDIANCE (EMPAGLIFLOZIN) 25 MG TABLET PO (18:02)
[2025-04-22] MEDS: PROMETHAZINE INJ 25 MG in SODIUM CHLORIDE 0.9% 50 ML IV (19:21)
[2025-04-22] MEDS: LOSARTAN POTASSIUM 25 MG TABLET PO (20:14)
[2025-04-23] VITALS (11 sets, daily range): BP systolic 124–153; BP diastolic 80–96; PULSE 100–108; RESP 16–99; TEMP 36.3–37; O2SAT 93–96
[2025-04-23] MEDS: ceFAZolin/D5W 2 GM IV 2 GM/100 ML BAG IV ×3 (03:33→19:27)
[2025-04-23] MEDS: GABAPENTIN 100 MG CAPSULE 200 MG PO ×3 (05:40→20:59)
[2025-04-23 05:52] LABS: Basophils % (Auto) 0 % (0-2.5); Eosinophils % (Auto) 0 % (0-10); Hematocrit 29.1 % (36.0-46.0); Immature Granulocytes % (Auto) 0 % (0-0); Immature Granulocytes Auto 0.03 Thou/mm3 (0.00-0.00); Lymphocytes # (Auto) 1.3 Thou/mm3 (1.0-4.8); Lymphocytes % (Auto) 12 % (10-50); Mean Corpuscular HGB Conc 34.4 g/dl (31.0-37.0); Mean Corpuscular Hemoglobin 30.6 pg (25.0-35.0); Mean Corpuscular Volume 89 fL (80-100); Monocytes # (Auto) 0.8 Thou/mm3 (0.0-0.8); Monocytes % (Auto) 8 % (0-12); Neutrophils # (Auto) 8.2 Thou/mm3 (1.8-7.7); Neutrophils % (Auto) 79 % (37-80); Nucleated Red Blood Cell % 0 /100 WBC (0); Platelet Count 190 Thou/mm3 (140-440); Red Blood Count 3.27 Miln/mm3 (4.00-5.20); White Blood Count 10.3 Thou/mm3 (3.6-11.0)
[2025-04-23] MEDS: amLODIPine BESYLATE 5 MG TABLET 10 MG PO (08:05)
[2025-04-23] MEDS: DOCUSATE SOD 100 MG CAPSULE PO (08:06)
[2025-04-23] MEDS: VIT B12/Vit C/FA (Nephrovite) TABLET 1 TAB PO (08:06)
[2025-04-23] MEDS: FERROUS SULF 325 MG TABLET PO (08:07)
[2025-04-23] MEDS: JARDIANCE (EMPAGLIFLOZIN) 25 MG TABLET PO (08:07)
[2025-04-23] MEDS: HYDROmorphone INJ 2 MG/ML VIAL IVP ×2 (08:08→19:27)
[2025-04-23] MEDS: ONDANSETRON INJ 2 MG/ML INJ 2 ML 4 MG IV ×2 (08:10→19:30)
[2025-04-23] MEDS: LOSARTAN POTASSIUM 25 MG TABLET PO ×2 (09:51→12:24)
--- NOTE | 2025-04-23 12:01 | PD.ANESPROG ---
Documentation for date of: 04/23/25 POST ANESTHESIA NOTE: Patient had GETA for [facility]IDGE on 04/21/25. Pre-op, I saw her with her daughter. She has h/o HTN and was on anti-HTN medication that was stopped about one month ago. In pre-op, her SBP was 170-180s and DBP was 100s and HR 100s. She was otherwise calm and asymptomatic and non focal, and she specifically denied recent chest pains and pressure including in pre-op and also denied blurred vision/double vision. She reported slight headache earlier in pre-op but denied it later. She was being given 2 u RBC slowly via pump due to anemia. Surgeon aware. She did well intra-op and PACU and her vitals were maintained. Her elevated BP was discussed with the surgeon and recommended post op medicine consult, and it was discussed with them also. I just saw her now in 380 at about 11:55 am and she was alert and calm in bed, NAD, daughter at bedside, and they denied any problems from anesthesia. Sina Nelson MD Anesthesia Progress Note Progress Note Most recent Vital Signs: Last Vital Signs Temp 97.6 F 04/23/25 08:00 Pulse 107 H 04/23/25 09:51 Resp 18 04/23/25 08:35 BP 142/88 H 04/23/25 09:51 Pulse Ox 95 04/23/25 08:00 O2 Del Method Room Air 04/23/25 08:00 O2 Flow Rate 2 04/22/25 09:45
--- NOTE | 2025-04-23 14:24 | ESPR_ITS ---
<Statement entered by Summer Joy MD - 04/26/25 08:58> I reviewed above note and agree with findings and plans. I have also personally examined the patient with medicine team and went over assessment and plan with medical team including psychology intern and resident physician. Documentation for date of: 04/23/25 Subjective Subjective Interval history: No acute events overnight.?Patient seen and examined at bedside this AM.?Labs and vitals were reviewed.?BP improved but still hypertensive, will increase losartan to 50 mg qday. No further complaints at this time. Review of systems otherwise negative except what is mentioned above. Exam Vital Signs Temp Pulse Resp BP Pulse Ox O2 Del Method O2 Flow Rate 97.9 F 105 H 18 146/87 H 96 Room Air 2 04/23/25 12:00 04/23/25 12:04/23/25 12:00 04/23/25 12:04/23/25 12:00 04/23/25 12:00 04/22/25 09:45 Narrative Exam GENERAL: A&Ox3, middle age female, Awake and cooperate, Not in acute distress however appears to be in discomfort NEURO: no focal neurological deficits noted HEENT: Atraumatic, Normocephalic. mucous membranes moist. Eyes open, symmetrical, & clear HEART: Normal Heart Sounds LUNGS: Clear to auscultation with no wheezing or crackles. ABDOMEN: abdomen have post surgical bandage, abdomen is soft SKIN: No Rash or ecchymoses EXTREMITIES: No edema, tenderness, able to move all 4 extremities, pedal pulses palpated Objective Labs 04/23/25 04:20 04/22/25 05:07 Labs: Laboratory Results - last 24 hr 04/23/25 04:20 WBC 10.3 RBC 3.27 L Hgb 10.0 L D Hct 29.1 L MCV 89 MCH 30.6 MCHC 34.4 RDW Std Deviation 47.0 H Plt Count 190 Neut % (Auto) 79 Lymph % (Auto) 12 [place] % (Auto) 8 Eos % (Auto) 0 Baso % (Auto) 0 Neut # (Auto) 8.2 H Lymph # (Auto) 1.3 [place] # (Auto) 0.8 Eos # (Auto) 0.0 Baso # (Auto) 0.0 Immature Gran # (Auto) 0.03 H Absolute Nucleated RBC 0.00 Immature Gran % 0 Nucleated RBC % 0 Quality Measures Quality Measures VTE prophylaxis Assessment & Plan Assessment Current Active Medications: Generic Name Dose Route Start Last Admin Trade Name Freq PRN Reason Stop Dose Admin Amlodipine Besylate 10 mg 04/22/25 17:15 04/23/25 08:05 Amlodipine Besylate 5 Mg Tablet PO 05/22/25 17:14 10 mg QDAY DEVEN Administration Janumet (Sitagliptin 0 ea 04/23/25 17:45 -Metformin 50 Mg-1, PO 05/23/25 17:44 000 Mg) Tablet BIDWM DEVEN Jardiance ( 0 ea 04/22/25 18:00 04/23/25 08:07 Empagliflozin) 25 Mg PO 05/22/25 17:59 1 tablet Tablet QDAY DEVEN Administration Diphenhydramine HCl 25 mg 04/21/25 12:14 Diphenhydramine Inj 50 Mg/Ml Vial IV 05/21/25 12:13 Q2HR PRN ITCHING Docusate Sodium 100 mg 04/22/25 09:00 04/23/25 08:06 Docusate Sod 100 Mg Capsule PO 05/22/25 08:59 100 mg QDAY DEVEN Administration Ergocalciferol 50,000 unit 04/28/25 09:00 Ergocalciferol (Vit D2) 50,000 Unit Cap (Non-Formulary) PO 05/28/25 08:59 QWEEK DEVEN Ferrous Sulfate 325 mg 04/22/25 09:00 04/23/25 08:07 Ferrous Sulf 325 Mg Tablet PO 05/22/25 08:59 325 mg QDAY DEVEN Administration Gabapentin 200 mg 04/21/25 12:15 04/23/25 05:40 Gabapentin 100 Mg Capsule PO 05/21/25 12:14 200 mg Q8HR DEVEN Administration Hydromorphone HCl 2 mg 04/21/25 12:14 04/23/25 08:08 Hydromorphone Inj 2 Mg/Ml Vial IVP 04/26/25 12:13 2 mg Q3HR PRN Administration PAIN SCALE 7-10 (Severe Hydromorphone HCl 2 mg 04/21/25 12:14 04/22/25 08:35 Hydromorphone Hcl 2 Mg Tablet PO 04/26/25 12:13 2 mg Q4HR PRN Administration PAIN SCALE 4-6 (Moderate Promethazine HCl 25 mg/ Sodium 51 mls @ 2.5 mls/min 04/21/25 12:14 04/22/25 19:21 Chloride IV 05/21/25 12:13 2.5 mls/min Q6HR PRN Administration NAUSEA OR VOMITING Cefazolin Sodium 2 gm in 100 mls @ 100 mls/hr 04/21/25 19:30 04/23/25 12:24 Ancef 2gm Ivpb IV 04/28/25 19:29 100 mls/hr Q8H DEVEN Administration Losartan Potassium 50 mg 04/24/25 09:00 Losartan Potassium 25 Mg Tablet PO 05/24/25 08:59 QDAY DEVEN Ondansetron HCl 4 mg 04/21/25 12:14 04/23/25 08:10 Ondansetron Inj 2 Mg/Ml Inj 2 Ml IV 05/21/25 12:13 4 mg Q6HR PRN Administration NAUSEA OR VOMITING Vitamin B Complex/Vit C/Folic Acid 1 tab 04/22/25 09:00 04/23/25 08:06 Vit B12/Vit C/Fa (Nephrovite) Tablet PO 05/22/25 08:59 1 tab QDAY DEVEN Administration Plan Ms. Acosta is a 40 year old female past medical history significant for type 2 diabetes, hypertension, anemia and endometriosis. Patient was admitted for total abdominal hysterectomy on 04/21/2025. Patient is postop day 1 of total abdominal hysterectomy with bilateral salpingectomy. Hospitalist team is consulted for further management of primary hypertension. #Primary Hypertension - Patient's blood pressure is 179/113 and heart rate 103 - Patient received hydralazine 5 mg p.o. x 1 - Will resume patient's home amlodipine 10 mg daily and continue to monitor blood pressure #[id number] type 2 diabetes - Blood glucose 133 and fingerstick is 117 - Patient's home Jardiance and Janumet is resumed by primary team - Will continue to monitor daily blood glucose and Accu-Cheks AC # Endometriosis status post total hysterectomy with salpingectomy POD 1 - Patient underwent total abdominal hysterectomy with bilateral salpingectomy on 04/21/[address] Reyes - Pain control is ordered - Remainder management as per primary team #Acute anemia #Normocytic anemia - Hemoglobin is 8.0, hematocrit 23.6, MCV 92 - Acute anemia is likely secondary to routine IntraOp blood loss plus hemodilution as patient received approximately 3 L of fluids -There are no signs of active bleeding from surgical site, no signs of intra- abdominal bleeding. -Will continue to monitor daily CBC, if Hgb drops <7, will transfuse pRBCs - Primary team resume patient's home ferrous sulfate 325 mg Health Maintenance Disposition: Medsur POD1 DVT Prophylaxis: SCD QSHIFT GI Prophylaxis: Not indicated Diet: regular diet Lines: Peripheral lines Code status: Full Patient plan of care was discussed with the attending physician, Dr. Joy. Sirisha Vazquez, PGY-2
[2025-04-23] MEDS: HYDROMORPHONE HCL 2 MG TABLET PO (14:27)
--- NOTE | 2025-04-23 14:29 | PD.GYNPROG ---
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 Pain is still being controlled with IV dilaudid in addition to oral dilaudid, gabapentin, and tylenol. PT was ordered to help encourage her to regularly ambulate. She is ambulating no lightheadedness/dizziness. Voiding spontaneously since goldstein was removed, no issues. Tolerating regular diet without emesis, but she does have some nausea which has been treated with zofran (likely from narcotic). Only scant spotting with wiping. No fevers/chills, no CP/SOB. IM was consulted and providing recommendations for bp (re-started home regimen of nifedipine 10mg PO QD). Exam Vital Signs Temp Pulse Resp BP Pulse Ox O2 Del Method O2 Flow Rate 97.9 F 105 H 18 146/87 H 96 Room Air 2 04/23/25 12:00 04/23/25 12:24 04/23/25 12:00 04/23/25 12:24 04/23/25 12:00 04/23/25 12:00 04/22/25 09:45 Narrative Exam General: well developed, well nourished, no acute distress, conversant Cardiac: normal heart rate Lungs: breathing without distress Abdomen: soft, appropriately tender to palpation, no rebound or guarding, non-distended, vertical midline incision has kelly reapproximating the edges well and is dry/clean/intact. No erythema, drainage or induration. 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 - PN: Obj Data Labs 04/23/25 04:20 04/22/25 05:07 Labs: Laboratory Results - last 24 hr 04/23/25 04:20 WBC 10.3 RBC 3.27 L Hgb 10.0 L D Hct 29.1 L MCV 89 MCH 30.6 MCHC 34.4 RDW Std Deviation 47.0 H Plt Count 190 Neut % (Auto) 79 Lymph % (Auto) 12 [place] % (Auto) 8 Eos % (Auto) 0 Baso % (Auto) 0 Neut # (Auto) 8.2 H Lymph # (Auto) 1.3 [place] # (Auto) 0.8 Eos # (Auto) 0.0 Baso # (Auto) 0.0 Immature Gran # (Auto) 0.03 H Absolute Nucleated RBC 0.00 Immature Gran % 0 Nucleated RBC % 0 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 Received 3u pRBCs with change in Hgb from 8 to 10. Patient has multiple medical comorbidities, to include HTN. Appreciate IM recommendations for re-starting home amlodipine 10mg QD. BPs now mild range, not severe. Continuing home T2DM meds. Pain still being managed with combo of IV and oral meds, discussed with patient and her daughter the importance of weaning off of IV meds so that she is only taking oral meds which she will continue at home. Avoiding NSAIDs since prior recommendation from her physician was to avoid them to protect renal function Encourage ambulation (PT involved) Possible discharge home tomorrow if meeting all milestones (2) Pelvic and perineal pain: Status: Acute (3) Umbilical hernia without obstruction or gangrene: Status: Acute (4) Diverticulosis of large intestine without perforation or abscess without bleeding: Status: Acute (5) Chronic kidney disease, unspecified: Status: Acute Postoperative Procedures: Procedures Operation Date: 04/21/25 10:45 Actual Procedure Side Surgeon p Total abdominal hysterectomy with left salpingectomy Left Octavio Reyes MD Time Spent With Patient Time: Total time spent is greater than 50% in coordination of care (as documented) at patient's floor/unit and/or counseling patient: Time with patient: 25 - 35 minutes
[2025-04-24] VITALS (7 sets, daily range): BP systolic 117–144; BP diastolic 71–95; PULSE 93–104; RESP 16–18; TEMP 36.3–36.6; O2SAT 95–99
[2025-04-24] MEDS: HYDROmorphone INJ 2 MG/ML VIAL IVP ×2 (00:38→07:16)
[2025-04-24] MEDS: ceFAZolin/D5W 2 GM IV 2 GM/100 ML BAG IV (03:52)
[2025-04-24] MEDS: GABAPENTIN 100 MG CAPSULE 200 MG PO (05:24)
[2025-04-24] MEDS: VIT B12/Vit C/FA (Nephrovite) TABLET 1 TAB PO (09:06)
[2025-04-24] MEDS: amLODIPine BESYLATE 5 MG TABLET 10 MG PO (09:07)
[2025-04-24] MEDS: FERROUS SULF 325 MG TABLET PO (09:07)
[2025-04-24] MEDS: DOCUSATE SOD 100 MG CAPSULE PO (09:07)
[2025-04-24] MEDS: LOSARTAN POTASSIUM 25 MG TABLET 50 MG PO (09:08)
[2025-04-24] MEDS: JARDIANCE (EMPAGLIFLOZIN) 25 MG TABLET PO (09:09)
--- NOTE | 2025-04-24 10:35 | CHAP ---
Patient was visited by the Spiritual Care Volunteer who prayed for them. (Volunteer was in the hospital from 09:13-10:45)
--- NOTE | 2025-04-24 10:59 | PD.GYNDS ---
Planned Discharge Date 04/24/25 DS: Providers Provider Date of admission: 04/21/25 07:05 Primary care physician: Cory Chang MD Admitting Provider: Octavio Reyes MD Attending Provider on Admission: Octavio Reyes MD Consults: 04/21/25 17:11 Referral Jaden Routine Comment: 04/22/25 15:31 Consult to Adult Hospitalist Stat Comment: Blood pressure control Consulting Provider: Summer Joy Attending Provider on DC: Polina Patel MD Discharging Provider: Polina Patel MD DS: Diagnosis Discharge Diagnosis (1) S/P total abdominal hysterectomy: Status: Acute (2) Abnormal uterine and vaginal bleeding, unspecified: Status: Acute (3) Type 2 diabetes mellitus with diabetic polyneuropathy: Status: Acute (4) Chronic kidney disease, unspecified: Status: Acute (5) Hypertension: Status: Acute Problem List Completed Was Problem List Reviewed/Reconciled?: Yes Hospital Course Hospital Course Hospital course: Marian is a 40yo F doing well on postoperative day #3 status post vertical laparotomy for total abdominal hysterectomy and bilateral salpingectomy. Received 3u pRBCs with change in Hgb from 8 to 10. She has had an uncomplicated post-operative course, meeting all milestones and feels ready for discharge home. She is ambulating without lightheadedness, tolerating regular diet no vomiting (occasional nausea related to opiates), spontaneously voiding without issue. Passing flatus. She has no chest pain or shortness of breath. No fevers or chills. Pain well controlled. Vitals normal, benign exam. Hemodynamically stable with no evidence of infection. Marian has multiple medical comorbidities, to include T2DM with related CKD and HTN. Appreciate IM recommendations for re-starting home amlodipine 10mg QD and increasing losartan to 50mg PO QD. BPs now mild range, not severe. Will continue these anti-HTN meds and home T2DM meds. 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 No erythema, drainage or induration. Dry. Extremities: no pain with palpation of calves, trace edema of BLE Discharge Plan Plan Patient Disposition: HOME (Self Care) Patient condition on transfer: Stable Prescriptions/Referrals Prescriptions/Med Rec: New docusate sodium [Stool Softener] 100 mg capsule 100 mg PO QDAY 30 Days Qty: 30 0RF hydromorphone [Dilaudid] 2 mg tablet 2 mg PO Q6H MDD 4 PRN (Reason: pain) 7 Days Qty: 28 0RF acetaminophen 500 mg capsule 500 mg PO Q6H PRN (Reason: fever or pain) 10 Days Qty: 40 0RF ondansetron 4 mg tablet,disintegrating 4 mg PO Q6H PRN (Reason: nausea and vomiting) 10 Days Qty: 20 0RF amlodipine 10 mg tablet 10 mg PO QDAY 30 Days Qty: 30 0RF losartan 50 mg tablet 50 mg PO QDAY 30 Days Qty: 30 0RF Continued Janumet 50-1,000 mg tablet 1 tab PO BID Nephro-Jacinto 0.8 mg tablet 1 tab PO QDAY ferrous sulfate [FeroSul] 325 mg (65 mg iron) tablet 325 mg PO QDAY Patient Comments: take 1 tablet by mouth twice a day gabapentin 100 mg capsule 200 mg PO Q8H Patient Comments: take 2 capsules by mouth three times a day ergocalciferol (vitamin D2) 1,250 mcg (50,000 unit) capsule 50,000 unit PO QWEEK Patient Comments: take 1 capsule by mouth every week ON SUNDAYS Jardiance 25 mg tablet 25 mg PO DAILY Patient Comments: take 1 tablet by mouth once daily Referrals: Cory Chang MD [Primary Care Provider] - Octavio Reyes MD [Physician] - Patient/Caregiver Discharge Instructions Meds to Beds: Yes Discharge Activity: activity as tolerated and other Other Discharge Activity Instructions:: vaginal rest and no heavy lifting more than 10 pounds for 6 weeks. no driving while taking narcotic. keep incision clean and dry, do not submerge Other Discharge Diet Instructions: diabetic diet Education Materials: Abdominal Hysterectomy Dc Print Language: American Activity Restrictions/Additional Instructions: follow up with Dr. 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
[2025-04-24] MEDS: HYDROMORPHONE HCL 2 MG TABLET PO (11:35)
--- NOTE | 2025-04-24 11:51 | PC.NURSE ---
Discharge education completed. Patient verbalized understanding. IV removed.
--- NOTE | 2025-04-24 15:51 | ESPR_ITS ---
<Statement entered by Summer Joy MD - 04/26/25 09:00> I reviewed above note and agree with findings and plans. I have also personally examined the patient with medicine team and went over assessment and plan with medical team including communications marketing intern and resident physician. Documentation for date of: 04/24/25 Subjective Subjective Interval history: No acute overnight events reported. Patient seen and examined at bedside this morning. Patient is postop day 3 and states she is doing well. Blood pressure is well-controlled with amlodipine 10 mg and losartan 25 which was increased yesterday. Remainder vitals are stable patient is stable and hospitalist team well at this time sign off. Exam Vital Signs Temp Pulse Resp BP Pulse Ox O2 Del Method O2 Flow Rate 97.7 F 98 18 135/85 H 97 Room Air 2 04/24/25 12:05 04/24/25 12:05 04/24/25 12:05 04/24/25 12:05 04/24/25 12:05 04/24/25 12:05 04/22/25 09:45 Narrative Exam GENERAL: A&Ox3, middle age female, Awake and cooperate, Not in acute distress NEURO: no focal neurological deficits noted HEENT: Atraumatic, Normocephalic. mucous membranes moist. Eyes open, symmetrical, & clear HEART: Normal Heart Sounds LUNGS: Clear to auscultation with no wheezing or crackles. ABDOMEN: abdomen have post surgical bandage, abdomen is soft SKIN: No Rash or ecchymoses EXTREMITIES: No edema, tenderness, able to move all 4 extremities, pedal pulses palpated Objective Labs 04/23/25 04:20 04/22/25 05:07 Quality Measures Quality Measures VTE prophylaxis Assessment & Plan Assessment Current Active Medications: Generic Name Dose Route Start Last Admin Trade Name Freq PRN Reason Stop Dose Admin Amlodipine Besylate 10 mg 04/22/25 17:15 04/23/25 08:05 Amlodipine Besylate 5 Mg Tablet PO 05/22/25 17:14 10 mg QDAY DEVEN Administration Janumet (Sitagliptin 0 ea 04/23/25 17:45 -Metformin 50 Mg-1, PO 05/23/25 17:44 000 Mg) Tablet BIDWM DEVEN Jardiance ( 0 ea 04/22/25 18:00 04/23/25 08:07 Empagliflozin) 25 Mg PO 05/22/25 17:59 1 tablet Tablet QDAY DEVEN Administration Diphenhydramine HCl 25 mg 04/21/25 12:14 Diphenhydramine Inj 50 Mg/Ml Vial IV 05/21/25 12:13 Q2HR PRN ITCHING Docusate Sodium 100 mg 04/22/25 09:00 04/23/25 08:06 Docusate Sod 100 Mg Capsule PO 05/22/25 08:59 100 mg QDAY DEVEN Administration Ergocalciferol 50,000 unit 04/28/25 09:00 Ergocalciferol (Vit D2) 50,000 Unit Cap (Non-Formulary) PO 05/28/25 08:59 QWEEK DEVEN Ferrous Sulfate 325 mg 04/22/25 09:00 04/23/25 08:07 Ferrous Sulf 325 Mg Tablet PO 05/22/25 08:59 325 mg QDAY DEVEN Administration Gabapentin 200 mg 04/21/25 12:15 04/23/25 05:40 Gabapentin 100 Mg Capsule PO 05/21/25 12:14 200 mg Q8HR DEVEN Administration Hydromorphone HCl 2 mg 04/21/25 12:14 04/23/25 08:08 Hydromorphone Inj 2 Mg/Ml Vial IVP 04/26/25 12:13 2 mg Q3HR PRN Administration PAIN SCALE 7-10 (Severe Hydromorphone HCl 2 mg 04/21/25 12:14 04/22/25 08:35 Hydromorphone Hcl 2 Mg Tablet PO 04/26/25 12:13 2 mg Q4HR PRN Administration PAIN SCALE 4-6 (Moderate Promethazine HCl 25 mg/ Sodium 51 mls @ 2.5 mls/min 04/21/25 12:14 04/22/25 19:21 Chloride IV 05/21/25 12:13 2.5 mls/min Q6HR PRN Administration NAUSEA OR VOMITING Cefazolin Sodium 2 gm in 100 mls @ 100 mls/hr 04/21/25 19:30 04/23/25 12:24 Ancef 2gm Ivpb IV 04/28/25 19:29 100 mls/hr Q8H DEVEN Administration Losartan Potassium 50 mg 04/24/25 09:00 Losartan Potassium 25 Mg Tablet PO 05/24/25 08:59 QDAY DEVEN Ondansetron HCl 4 mg 04/21/25 12:14 04/23/25 08:10 Ondansetron Inj 2 Mg/Ml Inj 2 Ml IV 05/21/25 12:13 4 mg Q6HR PRN Administration NAUSEA OR VOMITING Vitamin B Complex/Vit C/Folic Acid 1 tab 04/22/25 09:00 04/23/25 08:06 Vit B12/Vit C/Fa (Nephrovite) Tablet PO 05/22/25 08:59 1 tab QDAY DEVEN Administration Plan Ms. Acosta is a 40 year old female past medical history significant for type 2 diabetes, hypertension, anemia and endometriosis. Patient was admitted for total abdominal hysterectomy on 04/21/2025. Patient is postop day 1 of total abdominal hysterectomy with bilateral salpingectomy. Hospitalist team is consulted for further management of primary hypertension. #Primary Hypertension - Patient's blood pressure is 179/113 and heart rate 103 - Patient received hydralazine 5 mg p.o. x 1 - Resumed patient's home amlodipine 10 mg daily and added [id number] daily -continue to monitor blood pressure #[id number] type 2 diabetes - Blood glucose 133 and fingerstick is 117 - Patient's home Jardiance and Janumet is resumed by primary team - Will continue to monitor daily blood glucose and Accu-Cheks AC # Endometriosis status post total hysterectomy with salpingectomy POD 3 - Patient underwent total abdominal hysterectomy with bilateral salpingectomy on 04/21/[address] Reyes - Pain control is ordered - Remainder management as per primary team #Acute anemia #Normocytic anemia - Hemoglobin is 8.0, hematocrit 23.6, MCV 92 - Acute anemia is likely secondary to routine IntraOp blood loss plus hemodilution as patient received approximately 3 L of fluids -There are no signs of active bleeding from surgical site, no signs of intra- abdominal bleeding. -Will continue to monitor daily CBC, if Hgb drops <7, will transfuse pRBCs - Primary team resume patient's home ferrous sulfate 325 mg Health Maintenance Disposition: Medsurg POD1 DVT Prophylaxis: SCD QSHIFT GI Prophylaxis: Not indicated Diet: regular diet Lines: Peripheral lines Code status: Full Assessment and plan discussed with my attending physician Dr. Rufino Hi (PGY-1)- Internal medicine resident
== END 2025-04-24 12:08 | disposition home or self-care (01) | DRG 513 ==
LOC: S2W2 07:36 → S3SX 16:49
PROVIDERS: Admitting Provider Obstetrics & Gynecology; PCP Family Medicine; Visit Provider Obstetrics & Gynecology
PROC: 0UT90ZZ Resection of Uterus, Open Approach (ICD-10-PCS; principal; 2025-04-21 10:45)
DX: N92.0 Excessive and frequent menstruation with regular cycle (principal); E11.22 Type 2 diabetes mellitus with diabetic chronic kidney disease; K42.9 Umbilical hernia without obstruction or gangrene; K57.30 Diverticulosis of large intestine without perforation or abscess without bleeding; N18.9 Chronic kidney disease, unspecified; Z87.440 Personal history of urinary (tract) infections; K57.90 Diverticulosis of intestine, part unspecified, without perforation or abscess without bleeding; N80.9 Endometriosis, unspecified; R10.2 Pelvic and perineal pain; G89.29 Other chronic pain; D62 Acute posthemorrhagic anemia; Z79.4 Long term (current) use of insulin; K66.0 Peritoneal adhesions (postprocedural) (postinfection); E11.42 Type 2 diabetes mellitus with diabetic polyneuropathy; I15.1 Hypertension secondary to other renal disorders
CPT/HCPCS: 36415; 80048; 80053; 84703; 85025; 86850; 86900; 86901; 86923; 86927; 93005; A4217; A4649; J0131; J0689; J0690; J1100; J1171; J1885; J2405; J2550; J2704; J2765; J3010; J3490; J7030; P9016; P9060; A9270; J1805

== ENCOUNTER 2025-05-04 12:58 | Outpatient (AMB) | payer MEDICAID, SELFPAY ==
[2025-05-04 13:16] VITALS: BP 125/82; PULSE 93; RESP 17; TEMP 36.6; O2SAT 97; BMI 19.0
--- NOTE | 2025-05-04 13:16 | AMB.GYNCLNOT ---
Vital Signs 05/04/25 13:16 Height 1.65 m Height Method Stated Weight 51.766 kg Weight Measurement Method Standing Scale BMI 19.0 BP 125/82 Blood Pressure Source Automatic Cuff Blood Pressure Location Right Upper Arm Position Sitting Respiration 17 Pulse 93 Pulse Source Monitor Temp 97.8 F Temp Source Temporal Artery Scan Pulse Oximetry (%) 97 Oxygen Delivery Method Room Air Allergies/Home Meds Allergies & Medications Allergies No Known Allergies Allergy (Verified 05/24/25 10:13) Medication Reconciliation empagliflozin 25 mg tablet (Jardiance) 25 mg PO DAILY 02/07/23 [History Confirmed 05/17/25] ergocalciferol (vitamin D2) 1,250 mcg (50,000 unit) capsule 50,000 unit PO QWEEK 04/18/25 [History Confirmed 05/17/25] ferrous sulfate 325 mg (65 mg iron) tablet (FeroSul) 325 mg PO QDAY 04/18/25 [History Confirmed 05/17/25] gabapentin 100 mg capsule 200 mg PO Q8H 04/18/25 [History Confirmed 05/17/25] sitagliptin phosphate 50 mg-metformin 1,000 mg tablet (Janumet) 1 tab PO BID 04/18/25 [History Confirmed 05/17/25] vitamin B complex-vitamin C-folic acid 0.8 mg tablet (Nephro-Jacinto) 1 tab PO QDAY 04/18/25 [History Confirmed 05/17/25] clindamycin phosphate 1 % lotion 1 applic topical BID 7 days #60 mL 05/17/25 [Rx] Intake Visit Data Collection New Patient or Established: Established Patient (seen at [facility] within 3 years) Reason for Visit:: STAPLE REMOVAL Seen by Clinical Staff ONLY (RN/MA): No Warble Saw Operator Required: Yes Do You Feel Safe at Home: Yes Authorities Contacted: N/A PCP or OBGYN visit in last 3 months: Yes Date of Last PCP or OBGYN visit: 04/24/25 Smoking Status Smoking Status: Never smoker 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 Development 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 History Currently sexually active: No 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 1. Little interest or pleasure in doing things: not at all 2. Feeling down, depressed, or hopeless: not at all Total score: 0 PHQ-9 3. Trouble falling or staying asleep, or sleeping too much: Not at all 4. Feeling tired or having little energy: Not at all 5. Poor appetite or overeating: Not at all 6. Feeling bad about yourself - or that you are a failure or have let yourself or your family down: Not at all 7. Trouble concentrating on things, such as reading the newspaper or watching television: Not at all 8. Moving or speaking so slowly that other people could have noticed? - Or the opposite - being so fidgety or restless that you have been moving around a lot more than usual: not at all 9. Thoughts that you would be better off or of hurting yourself in some way: Not at all Total score: 0 If you checked off any problems, how difficult have these problems made it for you to do your work, take care of things at home, or get along with other people?: not difficult at all Source: Developed by Drs. Nguyễn Holland, Zahira Cortez, Get Beal and colleagues, with an educational watson from [employer]. Depression screen completed yes Social History Living Situation History Marital Status: Lives With: Family Housing: mobile home Housing Other:: Lives with and children Tobacco History Smoking Status: Never smoker Second Hand Smoke Exposure: No Alcohol History Alcohol Intake: Never Domestic Abuse History Do You Feel Safe at Home: Yes History of Present Illness HPI Narrative Marian presents for a 2-week post-operative follow-up and staple removal following a total abdominal hysterectomy with extensive lysis of adhesions via vertical incision. She reports ongoing pain at the surgical site, which is expected given the extensive nature of the procedure. The patient notes that her incision has healed quickly. Marian mentions a decreased appetite since the surgery, which is also noted as an expected post-operative symptom. She denies any issues with urination or bowel movements, as well as indigestion, vomiting, or nausea. Regarding pain management, Marian reports having only two pain medication tablets left, which she has been using as needed for severe pain. She has been using Tylenol for pain when not severe. The patient has been using an abdominal binder as instructed post-operatively. Marian has been following post-operative instructions, including avoiding heavy lifting (over 25 pounds). She has begun to resume light activities such as driving and going to the store. She underwent a total abdominal hysterectomy with extensive lysis of adhesions, vertical incision, 2 weeks ago. The patient is able to drive and go to the store. She has been advised to do light work and not lift more than 25 pounds. Exam Narrative Physical exam: - Abdomen: Vertical incision present from total abdominal hysterectomy. Zelalem removed from incision site. Incision appears well-healed. General General Appearance: alert, in no apparent distress and healthy appearing Head Head exam: atraumatic Neck Neck exam: Present normal inspection and trachea midline Chest Chest inspection: Present normal inspection and symmetric chest wall rise External exam: Present normal external exam; Absent tenderness Neuro Neurological exam: Present oriented X3 Psych Psychiatric exam: Present normal affect and normal mood Office Procedures OB Clinic LOC & Office Proc's Nursing/Assessment Patient Status: Established Patient OB Clinic Nursing Assessment: Medication Reconciliation, Update PMH in EMR and Vital Signs OB Clinic Coordination of Care: Complex Care and Chronic Disease 1-5, Consent,records obtained, informed consent, Education Simp Pt/Fam and Staff clarify orders Miscellaneous Interventions: Staple/Suture Removal Established Patient Charge Established Patient Point Assignment: 100 Established Patient Point Charge: EP Level 3 (80-115) Assessment & Plan Diagnosis / Problem List (1) Superficial postoperative wound infection: Status: Acute (2) S/P total abdominal hysterectomy: Status: Acute Plan Status post total abdominal hysterectomy with extensive lysis of adhesions: - Patient is 2 weeks post-operative from a total abdominal hysterectomy with extensive lysis of adhesions via vertical incision. - Surgical site healing well, patient noting faster than expected healing. - Continued pain reported, expected given extensive nature of surgery. - No reported issues with urination or bowel movements. - Decreased appetite noted, considered normal at this post-operative stage. Plan: - Remove surgical zelalem from vertical incision site. - Continue use of post-operative abdominal binder until 1 month post-op. - Prescribe additional pain medication: ? Take only for severe pain. ? Use acetaminophen for mild to moderate pain. ? Avoid ibuprofen due to potential renal effects. - Activity restrictions: ? May drive and perform light work. ? Avoid lifting more than 25 pounds. - Follow-up appointment in 2 weeks.
== END 2025-05-04 13:42 | disposition home or self-care (01) ==
LOC: HODSOBC 12:58
PROVIDERS: PCP Family Medicine; Referring Provider Family Medicine; Supervising Provider Obstetrics & Gynecology; Visit Provider Obstetrics & Gynecology
DX: T81.41XA Infection following a procedure, superficial incisional surgical site, initial encounter (principal); Z90.710 Acquired absence of both cervix and uterus; I10 Essential (primary) hypertension; E11.9 Type 2 diabetes mellitus without complications; Z79.84 Long term (current) use of oral hypoglycemic drugs; Y83.6 Removal of other organ (partial) (total) as the cause of abnormal reaction of the patient, or of later complication, without mention of misadventure at the time of the procedure
CPT/HCPCS: 99213; G0463

== ENCOUNTER 2025-05-17 13:12 | Outpatient (AMB) | payer MEDICAID, SELFPAY ==
[2025-05-17 13:27] VITALS: BP 167/101; PULSE 103; RESP 20; TEMP 36.8; O2SAT 98; BMI 20.2
--- NOTE | 2025-05-17 13:27 | AMB.GYNCLNOT ---
Vital Signs 05/17/25 13:27 Height 1.65 m Height Method Stated Weight 55.055 kg Weight Measurement Method Standing Scale BMI 20.2 BP 167/101 H Blood Pressure Source Automatic Cuff Blood Pressure Location Left Upper Arm Position Sitting Respiration 20 Pulse 103 H Pulse Source Monitor Temp 98.2 F Temp Source Oral Pulse Oximetry (%) 98 Oxygen Delivery Method Room Air Allergies/Home Meds Allergies & Medications Allergies No Known Allergies Allergy (Verified 05/17/25 13:28) Medication Reconciliation empagliflozin 25 mg tablet (Jardiance) 25 mg PO DAILY 02/07/23 [History Confirmed 05/17/25] ergocalciferol (vitamin D2) 1,250 mcg (50,000 unit) capsule 50,000 unit PO QWEEK 04/18/25 [History Confirmed 05/17/25] ferrous sulfate 325 mg (65 mg iron) tablet (FeroSul) 325 mg PO QDAY 04/18/25 [History Confirmed 05/17/25] gabapentin 100 mg capsule 200 mg PO Q8H 04/18/25 [History Confirmed 05/17/25] sitagliptin phosphate 50 mg-metformin 1,000 mg tablet (Janumet) 1 tab PO BID 04/18/25 [History Confirmed 05/17/25] vitamin B complex-vitamin C-folic acid 0.8 mg tablet (Nephro-Jacinto) 1 tab PO QDAY 04/18/25 [History Confirmed 05/17/25] docusate sodium 100 mg capsule (Stool Softener) 100 mg PO QDAY 30 days #30 caps 04/21/25 [Rx Confirmed 05/17/25] amlodipine 10 mg tablet 10 mg PO QDAY 30 days #30 tabs 04/24/25 [Rx Confirmed 05/17/25] losartan 50 mg tablet 50 mg PO QDAY 30 days #30 tabs 04/24/25 [Rx Confirmed 05/17/25] clindamycin phosphate 1 % lotion 1 applic topical BID 7 days #60 mL 05/17/25 [Rx] sulfamethoxazole 800 mg-trimethoprim 160 mg tablet (Bactrim DS) 1 tab PO BID 7 days #14 tabs 05/17/25 [Rx] Intake Visit Data Collection New Patient or Established: Established Patient (seen at [facility] within 3 years) Reason for Visit:: POST OP Seen by Clinical Staff ONLY (RN/MA): No Celery Packer Required: No Do You Feel Safe at Home: Yes Authorities Contacted: N/A PCP or OBGYN visit in last 3 months: Yes Hx Now: No Are you currently on any form of Control: No Pain Present Currently: Yes Pain Location: Abdomen Pain Scale Used: Valentin-Ramsey/Numerical Pain scale:: 5 Smoking Status Smoking Status: Never smoker [employer] INS[employer] 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 1. Little interest or pleasure in doing things: not at all 2. Feeling down, depressed, or hopeless: not at all Total score: 0 PHQ-9 3. Trouble falling or staying asleep, or sleeping too much: Not at all 4. Feeling tired or having little energy: Not at all 5. Poor appetite or overeating: Not at all 6. Feeling bad about yourself - or that you are a failure or have let yourself or your family down: Not at all 7. Trouble concentrating on things, such as reading the newspaper or watching television: Not at all 8. Moving or speaking so slowly that other people could have noticed? - Or the opposite - being so fidgety or restless that you have been moving around a lot more than usual: not at all 9. Thoughts that you would be better off or of hurting yourself in some way: Not at all Total score: 0 Source: Developed by Drs. Nguyễn Holland, Zahira Cortez, Get Beal and colleagues, with an educational watson from [employer]. Depression screen completed yes Social History Living Situation History Lives With: Family Housing: mobile home Housing Other:: Lives with and children Tobacco History Smoking Status: Never smoker Second Hand Smoke Exposure: No Alcohol History Alcohol Intake: Never Domestic Abuse History Do You Feel Safe at Home: Yes History of Present Illness HPI Narrative Patient reports developing a superficial skin infection at the top of the surgical site after a total abdominal hysterectomy performed through a vertical skin incision 4 weeks ago. She mentions experiencing pain and a burning sensation in the area. Patient attributes the onset of this issue to wearing an abdominal binder, which she believes caused friction and led to the current problem. She also notes ongoing pain in the surgical area, which is described as normal for this stage of recovery. She has been gradually increasing her activity level. Patient has been cooking but reports attempting more strenuous activities such as washing clothes. She denies any bladder problems and confirms having normal bowel movements. She is a [place]ian-speaking female who is 4 weeks status post total abdominal hysterectomy through a vertical skin incision. She was previously seen for staple removal on May 22, 2025, and was doing well at that time. Patient has been prescribed antibiotic tablets and antibiotic cream for the skin infection. Exam Narrative Physical exam: - Abdomen: Vertical skin incision present from total abdominal hysterectomy. Small gap noted at the top of the surgical site. Signs of superficial skin infection observed at the incision site. Office Procedures OB Clinic LOC & Office Proc's Nursing/Assessment Patient Status: Established Patient OB Clinic Nursing Assessment: Medication Reconciliation, Update PMH in EMR and Vital Signs OB Clinic Coordination of Care: Complex Care and Chronic Disease 1-5, Consent,records obtained, informed consent, Education Simp Pt/Fam, Lab and Imaging orders, Results/Orders obtained and Staff clarify orders Established Patient Charge Established Patient Point Assignment: 105 Established Patient Point Charge: EP Level 3 (80-115) Assessment & Plan Diagnosis / Problem List (1) Superficial postoperative wound infection: Status: Acute (2) S/P total abdominal hysterectomy: Status: Acute Plan Post-operative superficial skin infection: - Superficial skin infection at the top of the surgical incision site. - Infection caused by friction from wearing a binder post-operatively. - Area is painful and burning. - Assessed as an early, superficial skin infection requiring antibiotic treatment. Plan: - Prescribe topical antibiotic cream for application to affected area. - Prescribe oral antibiotic tablets. - Discontinue use of abdominal binder. - Follow-up appointment in 2 weeks to reassess infection. Post-operative care following total abdominal hysterectomy: - 4 weeks post-total abdominal hysterectomy with vertical skin incision. - Ilfeld removed on May 22, 2025. - Normal bowel movements and no bladder problems reported. - Ongoing expected pain at incision site related to dissolving suture material. Plan: - Gradually increase activity levels, including walking and light household activities. - Avoid heavy lifting, mopping, cleaning, or other strenuous activities to prevent hernia formation. - Continue to monitor for proper healing. - Cooking is permitted, but patient should ask for assistance with lifting heavy containers. - Follow-up in 2 weeks (combined with infection check).
== END 2025-05-17 14:09 | disposition home or self-care (01) ==
LOC: HODSOBC 13:12
PROVIDERS: PCP Family Medicine; Referring Provider Family Medicine; Supervising Provider Obstetrics & Gynecology; Visit Provider Obstetrics & Gynecology
DX: T81.41XA Infection following a procedure, superficial incisional surgical site, initial encounter (principal); L08.9 Local infection of the skin and subcutaneous tissue, unspecified; Z90.710 Acquired absence of both cervix and uterus; Y83.6 Removal of other organ (partial) (total) as the cause of abnormal reaction of the patient, or of later complication, without mention of misadventure at the time of the procedure
CPT/HCPCS: 99213; G0463

== ENCOUNTER 2025-05-24 10:06 | Emergency (ER) | payer MEDICAID, SELFPAY ==
[2025-05-24] VITALS (7 sets, daily range): BP systolic 122–180; BP diastolic 77–114; PULSE 95–107; RESP 16–18; TEMP 36.4–37.1; O2SAT 97–100; BMI 20.2
--- NOTE | 2025-05-24 | XR_ITS ---
MRI abdomen, without contrast. MRCP Date and time of exam: May 24, 2025 1844 hours INDICATIONS: Abdominal pain and vomiting beginning 2 months ago, enlarged common bile duct on abdomen sonogram today Technique: Multiple axial and coronal images of the abdomen have been obtained with the Siemens 1.5T MRI scanner. Images obtained included T1 weighted transverse images, T2-weighted transverse images, T2-weighted transverse images fat-suppressed, T2 weighted haste fat suppressed transverse images, T1 weighted images, in and out of phase images, T2-weighted coronal images, breath hold, T2 weighted haze coronal images as well as T2 weighted coronal thick slab images, MRCP. Findings: No gallstones identified Gallbladder wall isn't thickened Common bile duct measures 6 mm Coronal image 10 demonstrates 3 mm stone in the common hepatic duct Mild dilatation pancreatic duct No peripancreatic edema No hydronephrosis Mild perinephric stranding IMPRESSION: Normal gallbladder Suspicious for a 3 mm stone in the common hepatic duct
--- NOTE | 2025-05-24 10:19 | EKG_ITS ---
[facility] Test Date: 2025-05-24 Pat Name: HAILY CARBONE Department: Room: - Gender: Female Check Examiner: : 1985 Requested By: Ray Sauceda (GILBERT) Order Number: [id number] Reading MD: Ray Sauceda (BLIND ESCORT) Measurements Intervals [place] Rate: 105 P: 70 WA: 154 QRS: 59 QRSD: 91 T: 64 QT: 333 QTc: 442 Interpretive Statements SINUS TACHYCARDIA POSSIBLE LEFT ATRIAL ENLARGEMENT [-0.1mV P-WAVE IN V1/V2] ABNORMAL RHYTHM ECG Compared to ECG 04/18/2025 12:40:35 Sinus rhythm no longer present /store/S0/[id number].pdf
[2025-05-24] MEDS: ONDANSETRON INJ 2 MG/ML INJ 2 ML 4 MG IVP (10:35)
[2025-05-24] MEDS: MORPHINE SULF INJ 10 MG/ML VIAL 4 MG IVP ×2 (10:35→11:36)
[2025-05-24 10:39] LABS: Basophils # (Auto) 0.0 Thou/mm3 (0.0-0.2); Basophils % (Auto) 0 % (0-2.5); Eosinophils # (Auto) 0.1 Thou/mm3 (0.0-0.5); Eosinophils % (Auto) 1 % (0-10); Hematocrit 31.9 % (36.0-46.0); Hemoglobin 10.9 g/dL (12.0-16.0); Immature Granulocytes Auto 0.03 Thou/mm3 (0.00-0.00); Lymphocytes # (Auto) 1.2 Thou/mm3 (1.0-4.8); Lymphocytes % (Auto) 16 % (10-50); Mean Corpuscular HGB Conc 34.2 g/dl (31.0-37.0); Mean Corpuscular Hemoglobin 30.8 pg (25.0-35.0); Mean Corpuscular Volume 90 fL (80-100); Monocytes # (Auto) 0.3 Thou/mm3 (0.0-0.8); Monocytes % (Auto) 4 % (0-12); Neutrophils # (Auto) 6.2 Thou/mm3 (1.8-7.7); Neutrophils % (Auto) 79 % (37-80); Nucleated Red Blood Cell # 0.00 Thou/mm3 (0.00-0.00); Nucleated Red Blood Cell % 0 /100 WBC (0); Platelet Count 253 Thou/mm3 (140-440); RDW Standard Deviation 45.3 fL (36.4-46.3); Red Blood Count 3.54 Miln/mm3 (4.00-5.20); White Blood Count 7.9 Thou/mm3 (3.6-11.0)
[2025-05-24 10:58] LABS: Alanine Aminotransferase 14 U/L (10-49); Albumin, Serum 4.5 gm/dL (3.5-5.0); Albumin/Globulin Ratio 1.7 (1.2-2.2); Alkaline Phosphatase 69 U/L (46-116); Anion Gap 11 (7-16); Aspartate Amino Transferase 19 U/L (0-34); BUN/Creatinine Ratio 10 Ratio (12-20); Bilirubin,Total 0.5 mg/dL (0.3-1.2); Blood Urea Nitrogen 14 mg/dL (9-23); Calcium 9.6 mg/dL (8.3-10.6); Calcium (Corrected) 9.6 mg/dL (8.5-10.1); Carbon Dioxide 21.4 mMol/L (20.0-31.0); Chloride 103 mMol/L (98-107); Creatinine (Component) 1.4 mg/dL (0.6-1.3); Estimated Creatinine Clearance 44.2 mL/min (>60); Globulin 2.7 gm/dL (2.3-3.5); Glucose 126 mg/dL (74-106); Lipase 34 U/L (12-53); Osmolality,Calculated 272 (275-295); Potassium 5.3 mMol/L (3.4-5.1); Sodium 135 mMol/L (136-145); Total Protein 7.2 gm/dL (5.7-8.2); Troponin I < 0.020 ng/mL (0.0-0.045); eGFR 48 See Note
--- NOTE | 2025-05-24 11:07 | PD.EDADULT ---
ED General RME/HPI General Chief complaint: Abdominal Pain Stated complaint: Abdominal pain X 3 days, vomiting X 2 days Time Seen by Provider: 05/24/25 10:11 Arrival date/time: 05/24/25 10:06 RME / HPI RME / HPI narrative: 40 year old female s/p total abdominal hysterectomy on 04/21/[address] Reyes presents to the ED for evaluation of abdominal pain beginning 3 days ago. Described as aching in sensation that is located most to the epigastric and umbilical regions, rating as moderate. Accompanied by chills, nausea, and vomiting. Patient mentioned she was diagnosed with superficial postoperative wound infection 2 weeks ago and started on a 7-day course of antibiotics which she completed yesterday. Denies fevers, chest pain, cough, shortness of breath, diarrhea, or urinary symptoms. Patient mentioned she does have poor kidney function and is followed by a hematology nurse located in [place], [place]. Related Data Home Medications ?Medication ?Instructions ?Recorded ?Confirmed empagliflozin 25 mg tablet 25 mg PO DAILY 02/07/23 05/17/25 (Jardiance) ergocalciferol (vitamin D2) 1,250 50,000 unit PO QWEEK 04/18/25 05/17/25 mcg (50,000 unit) capsule ferrous sulfate 325 mg (65 mg 325 mg PO QDAY 04/18/25 05/17/25 iron) tablet (FeroSul) gabapentin 100 mg capsule 200 mg PO Q8H 04/18/25 05/17/25 sitagliptin phosphate 50 1 tab PO BID 04/18/25 05/17/25 mg-metformin 1,000 mg tablet (Janumet) vitamin B complex-vitamin C-folic 1 tab PO QDAY 04/18/25 05/17/25 acid 0.8 mg tablet (Nephro-Jacinto) Previous Rx's ?Medication ?Instructions ?Recorded clindamycin phosphate 1 % lotion 1 applic topical BID 7 days #60 mL 05/17/25 Allergies Allergy/AdvReac Type Severity Reaction Status Date / Time No Known Allergies Allergy Verified 05/24/25 10:13 Review of Systems Review of Systems Systems Reviewed: All systems reviewed, normal except as documented Past Medical History Past Medical History NEUROLOGIC: Positive Migraine CARDIAC: Positive Angina, Hypercholesterolemia and Hypertension RESPIRATORY: Positive Pneumonia GASTROINTESTINAL: Positive Gastrointestinal Disorders, Gastrointestinal Bleed, Diverticulosis, Hemorrhoids and Gastroesophageal Reflux Disease GENITOURINARY: Positive Genitourinary Disorders and Inguinal Hernia REPRODUCTIVE: Positive Endometriosis and Previous Pregnancies MUSCULOSKELETAL: Positive Musculoskeletal Disorders, Arthritis, Osteoporosis (left hip) and Fractures ENT: Positive Cataracts (BILATERAL) ENDOCRINE: Positive Endocrine Disorders and Diabetes Mellitus Type 2 HEMATOLOGIC: Positive Blood Disorders and Anemia PSYCHO/SOCIAL: Positive Depression, Anxiety and Post Traumatic Stress Disorder OTHER HISTORY: Positive Hospitalization, Falls and Chicken Pox Family History FAMILY HISTORY: Positive Family Psychiatric Problems, Family Cardiac Disorders, Family Gastrointestinal Problems and Family Surgery Surgical History SURGICAL: Positive Eye Surgery, Abdominal Surgery, Joint Replacement, Open Reduction Internal Fixation (left hip), Hysterectomy and Section (X3) Social History SMOKING STATUS: Never smoker SECOND HAND EXPOSURE: No SUBSTANCE USE: does not use ED Exam Narrative Physical exam: Physical Exam: General: The vital signs were reviewed. The patient is non-toxic, in no apparent distress and appears healthy with a patent airway, no respiratory distress and has no apparent circulatory problems. Head & Scalp: Normocephalic, atraumatic. Face: Appears normal and is without lesions, deformity. Ears: Left external pinna appears normal. Right external pinna appears normal. Eyes: The sclera is anicteric. No obvious photophobia. The Left and Right Orbit/Lid/Conjunctiva appears normal without swelling, discoloration or injection. Nose: The nose is without deformity, discharge or tenderness; Throat: Appears normal. The mucous membranes are pink and moist without exudates, redness or mass seen. The tongue appears normal. Neck: The neck is supple and no apparent mass or adenopathy. Chest: The chest wall is normal in size and symmetry and has no chest wall tenderness or crepitus. The patient displays normal ventilator effort without retractions, accessory muscle use and has adequate air movement bilaterally with no wheezes and no rales. Cardiovascular: Regular rate and rhythm; No murmurs, rubs, or gallops; Gastrointestinal: The abdomen appears normal. No obvious hernias or mass. The abdomen has midline and right upper quadrant tenderness otherwise is soft and benign, non-distended, with no pain, no guarding and no rebound tenderness. Bowel sounds are present and normal sounding. No CVA tenderness. Genitourinary: Back/Spine: Nontender Extremities/Musculoskeletal/lymphatic: The bilateral upper and lower extremities are warm. There is no evidence of arterial insufficiency. There is no evidence of venous insufficiency/edema. The patient spontaneously moves bilateral upper and lower extremities with no pain and no limitation of movement. There is no apparent, injury or trauma. Skin: The skin is warm, dry and intact. No rashes. No petechia. No purpura. No abnormal bruising. The color is appropriate with no cyanosis. Mental status/Psychiatric: Mental status is appropriate for age. The patient has no apparent delusions, visual hallucinations, no apparent audible hallucinations. The patient has no apparent suicidal thoughts/ideation and no apparent homicidal thoughts/ideation. Neurological: The patient is awake, alert, interactive, cordial, cooperative and is oriented to name and situation. The patient follows commands and answers historical question with no impairment. There is no visual disturbance apparent. The pupils are equal and reactive bilaterally with normal eye movements and no diplopia The bilateral upper and lower extremities have normal strength, normal range of motion and normal functioning. The gait, station and balance were not tested due to acuity Course Quality Measures none Orders Category Date Time Status CT Screening NOW Care 05/24/25 10:20 Active EKG (ED ONLY) *Do not use* NOW Care 05/24/25 10:20 Completed Insert IV NOW Care 05/24/25 10:20 Active MRI Screening NOW Care 05/24/25 14:[address] abdomen pelvis wo con Stat Exams 05/24/25 11:13 Completed EKG (ED Only) Stat Exams 05/24/25 10:19 Draft MR MRCP Stat Exams 05/24/25 Ordered US abdomen limited Stat Exams 05/24/25 11:13 Completed CBC Stat Lab 05/24/25 10:32 Completed Comprehensive Metabolic Panel Stat Lab 05/24/25 10:32 Completed Lipase Stat Lab 05/24/25 10:32 Completed Troponin I Stat Lab 05/24/25 10:32 Completed UA, C/S IF [Urinalysis, C/S if Indicated] Stat Lab 05/24/25 11:23 Completed Urine Culture Stat Lab 05/24/25 11:23 Received Ketorolac Inj [Toradol Inj] Med 05/24/25 14:22 Discontinued 15 mg IVP X1 ONE LORazepam [Ativan Inj] Med 05/24/25 15:48 Discontinued 1 mg IVP X1 ONE Morphine Inj Med 05/24/25 10:20 Discontinued 4 mg IVP X1 ONE Morphine Inj Med 05/24/25 11:14 Discontinued 4 mg IVP X1 ONE Ondansetron Inj [Zofran Inj] Med 05/24/25 11:14 Discontinued 4 mg IV X1 ONE Ondansetron Inj [Zofran Inj] Med 05/24/25 10:20 Discontinued 4 mg IVP X1 ONE Sodium Chloride 0.9% 1000 ml [Ns] 1,000 ml Med 05/24/25 11:14 Discontinued IV 999 mls/hr hydrALAZINE INJ [Apresoline Inj] Med 05/24/25 17:37 Once 10 mg IVP X1 ONE Vital Signs Vital signs: Vital Signs Temperature 98.2 F 05/24/25 10:15 Pulse Rate 106 H 05/24/25 10:15 Respiratory Rate 16 05/24/25 10:15 Blood Pressure 128/86 H 05/24/25 10:15 Pulse Oximetry (%) 99 05/24/25 10:15 Oxygen Delivery Method Room Air 05/24/25 10:15 Pulse ox is 99% on room air which is adequate. Critical Care Time Critical Care Time Critical Care Time: Yes Total Critical Care Time (min.): 45 Attestation: The high probability of sudden, clinically significant deterioration in the patient's condition required the highest level of my preparedness to intervene urgently. The services I provided to this patient were to treat and/or prevent clinically significant deterioration. Services included the following: chart data review, reviewing nursing notes and/or old charts, documentation time, network relations consultant collaboration regarding findings and treatment options, medication orders and management, direct patient care, vital sign assessments and ordering, interpreting and reviewing diagnostic studies and lab tests. Aggregate critical care time includes only time during which I was engaged in work directly related to the patient's care, as described above, whether at bedside or elsewhere in the Emergency Department. It did not include time spent performing other reported procedures or the services of residents, students, nurses or physician assistants. Discharge Plan Prescriptions/Referrals Prescriptions/Med Rec: No Action clindamycin phosphate 1 % lotion 1 applic topical BID 7 Days Qty: 60 1RF Janumet 50-1,000 mg tablet 1 tab PO BID Nephro-Jacinto 0.8 mg tablet 1 tab PO QDAY ferrous sulfate [FeroSul] 325 mg (65 mg iron) tablet 325 mg PO QDAY Patient Comments: take 1 tablet by mouth twice a day gabapentin 100 mg capsule 200 mg PO Q8H Patient Comments: take 2 capsules by mouth three times a day ergocalciferol (vitamin D2) 1,250 mcg (50,000 unit) capsule 50,000 unit PO QWEEK Patient Comments: take 1 capsule by mouth every week ON SUNDAYS Jardiance 25 mg tablet 25 mg PO DAILY Patient Comments: take 1 tablet by mouth once daily Referrals: Cory Chang MD [Primary Care Provider] - In 1 week Problem List Clinical Impression: Intractable epigastric abdominal pain, Hypertensive urgency, Gallbladder sludge Impression comment: History of chronic pain and opioid usage Patient/Caregiver Discharge Instructions Print Language: Frisian [facility] Narrative Sign out note: 1800: Patient signed out to Dr. Villasenor pending MRCP and final disposition. [facility] hospital course: Patient 40-year-old who comes in with complaining of epigastric and right upper quadrant abdominal pain. She states she had a hysterectomy approximate month ago with Dr. Reyes had a wound infection but that is doing better. She has never had epigastric pain before. She does have a history of chronic pain which was communicated by Dr. Tong or when I spoke to him about the surgical issue. Medical workup today revealed a CT scan which reveals no acute abdominal finding white count 7.9 hemoglobin 10.9 sodium 135 potassium 5.3 chloride 103 CO2 21.4 BUN 14 creatinine 1.4 note patient has some chronic renal insufficiency. Glucose 126 AST ALT and bilirubins were within normal limits. Troponin is -1+ blood 15 red cells 3+ bacteria CT report reveals normal appendix no acute pathology was found. There was some parenchymal stones but no hydro and no ureteral stone was visualized. Abdominal ultrasound revealed some sludge in the gallbladder was no stones no evidence of cholecystitis or pericholecystic fluid. But the patient is having continued pain despite 8 mg of morphine. This is when I called Dr. Lemus who knew the patient well and states she does have some chronic pain and opioid issues in the past but because of the sludge in her gallbladder and increasing pain I did an MRCP to further work her up. She patient was told that she was not to get any more opioids at this time unless we have have acute objective finding. She also states she is get claustrophobic and will need to be pretreated for her MRI scan. Patient's blood pressure has been staying in the 1 6180 range so we just ordered some hydralazine at 1730 hrs. and she supposed to go for MRCP very soon so 1 mg Ativan was given also. Patient has intractable epigastric pain with a history of chronic pain with no acute finding other than some gallbladder sludge. Normal transaminases and bilirubin. MRCP is done to be more complete in the workup. The care will go to the oncoming doctor at 1800 hrs. to follow-up recheck the blood pressure Clinical Information Provided by patient Medical Records Reviewed [facility] I reviewed outpatient OB f/u from 05/17/2025 Meds/Rx Considered, not Ordered None Labs/Rad/Tests considered, not Ordered None Chronic Illness/Social Conditions which may negatively complicate care or outcome(s)-explain: None or not applicable EKG Interpretation EKG #1: Date/time of EK05/24/25 10:24 AM EKG interpretation: Sinus tachycardia, rate 105, no STEMI. Lab Interpretation Labs: see narrative above Imaging Radiology reports / interpretation(s): Ordering Physician: South Mosquera MD Date of Service: 05/24/25 Procedure(s): US abdomen limited Accession Number(s): [id number] cc: Cory Chang MD; South Mosquera MD; Jigar Wu MD~ Examination: Abdomen sonogram, Limited Date and time of exam: May 24, 2025 and 57 hours INDICATIONS: Abdominal pain and vomiting beginning 3 days ago Technique: Real-time posada scale transabdominal sonographic images of the upper abdomen obtained. Findings: Gallbladder sludge No gallstones Gallbladder wall 0.2 cm Common bile duct 0.7 cm no definite stones Pancreatic head 2.2 cm Liver 13.9 cm smooth contour Normal hepatopedal portal venous flow Patent IVC IMPRESSION: Negative for cholelithiasis, negative for cholecystitis Enlarged common bile duct 0.7 cm, if biliary colic is a clinical consideration, consider MRCP follow-up Dictated By: Jigar Wu MD Signed By: <Electronically signed by Jigar Wu MD in OV> 05/24/25 1246 Ordering Physician: South Mosquera MD Date of Service: 05/24/25 Procedure(s): CT abdomen pelvis wo con Accession Number(s): [id number] cc: Cory Chang MD; South Mosquera MD; Jigar Wu MD~ Examination: CT abdomen and pelvis without contrast. Coronal 3-D reconstructions. Sagittal 2-D reconstructions. Date and time of exam:May 24, 2025 1154 hours INDICATIONS: Right-sided abdominal pain with nausea today CTDI: vol (mGy): 4.78 DLP: (mGycm): 247 Technique: Axial images of the abdomen have been obtained, 3 mm slice thickness Intravenous contrast material has not been administered. Low dose protocols were performed. One or more of the following dose reduction techniques were used; automated exposure control, adjustment of the mA and/or KV according to patient size, use of iterative reconstruction technique. Findings: No focal liver or splenic lesions No gallstones No pancreatic or adrenal mass Bilateral renal calculi, the largest in the lower pole left kidney, 9 mm Absent appendix No bowel obstruction No pelvic mass Mild urinary bladder wall thickening Moderate osteopenia IMPRESSION: Nonobstructing bilateral renal calculi, no hydronephrosis or ureteral calculi Absent appendix No bowel obstruction Mild cystitis pattern Dictated By: Jigar Wu MD Signed By: <Electronically signed by Jigar Wu MD in OV> 05/24/25 1303 Medication Administration(s) Medication Administration History Hydralazine HCl (Hydralazine Inj 20 Mg/Ml Vial) 10 mg IVP X1 ONE Stop: 05/24/25 17:38 Discontinued Medications Sodium Chloride (Ns) 1,000 mls @ 999 mls/hr IV .Q1H1M ONE Stop: 05/24/25 12:14 Last Infusion: 05/24/25 13:00 Dose: Infused Documented By: Admin: 05/24/25 11:39 Dose: 999 mls/hr Documented By: GM Ketorolac Tromethamine (Ketorolac Inj 30 Mg/Ml Vial) 15 mg IVP X1 ONE Stop: 05/24/25 14:23 Last Admin: 05/24/25 14:35 Dose: 15 mg Documented By: DB Lorazepam (Lorazepam 2 Mg/Ml Vial) 1 mg IVP X1 ONE Stop: 05/24/25 15:49 Morphine Sulfate (Morphine Sulf Inj 10 Mg/Ml Vial) 4 mg IVP X1 ONE Stop: 05/24/25 10:21 Last Admin: 05/24/25 10:35 Dose: 4 mg Documented By: DB Morphine Sulfate (Morphine Sulf Inj 10 Mg/Ml Vial) 4 mg IVP X1 ONE Stop: 05/24/25 11:15 Last Admin: 05/24/25 11:36 Dose: 4 mg Documented By: GM Ondansetron HCl (Ondansetron Inj 2 Mg/Ml Inj 2 Ml) 4 mg IVP X1 ONE; Protocol Stop: 05/24/25 10:21 Last Admin: 05/24/25 10:35 Dose: 4 mg Documented By: DB Ondansetron HCl (Ondansetron Inj 2 Mg/Ml Inj 2 Ml) 4 mg IV X1 ONE; Protocol Stop: 05/24/25 11:15 Last Admin: 05/24/25 14:35 Dose: 4 mg Documented By: DB See above Consultations/Discussions re: Management Consult #1: Date/time: 05/24/25 3:30 PM Physician, specialty, service, details: I spoke with patients qualifications examiner Dr. Reyes. Discussed patients PMHx, HPI, ED course, exam findings, labs, and radiology results as noted above.
--- NOTE | 2025-05-24 11:13 | XR_ITS ---
Examination: CT abdomen and pelvis without contrast. Coronal 3-D reconstructions. Sagittal 2-D reconstructions. Date and time of exam:May 24, 2025 1154 hours INDICATIONS: Right-sided abdominal pain with nausea today CTDI: vol (mGy): 4.78 DLP: (mGycm): 247 Technique: Axial images of the abdomen have been obtained, 3 mm slice thickness Intravenous contrast material has not been administered. Low dose protocols were performed. One or more of the following dose reduction techniques were used; automated exposure control, adjustment of the mA and/or KV according to patient size, use of iterative reconstruction technique. Findings: No focal liver or splenic lesions No gallstones No pancreatic or adrenal mass Bilateral renal calculi, the largest in the lower pole left kidney, 9 mm Absent appendix No bowel obstruction No pelvic mass Mild urinary bladder wall thickening Moderate osteopenia IMPRESSION: Nonobstructing bilateral renal calculi, no hydronephrosis or ureteral calculi Absent appendix No bowel obstruction Mild cystitis pattern
--- NOTE | 2025-05-24 11:13 | XR_ITS ---
Examination: Abdomen sonogram, Limited Date and time of exam: May 24, 2025 and 57 hours INDICATIONS: Abdominal pain and vomiting beginning 3 days ago Technique: Real-time posada scale transabdominal sonographic images of the upper abdomen obtained. Findings: Gallbladder sludge No gallstones Gallbladder wall 0.2 cm Common bile duct 0.7 cm no definite stones Pancreatic head 2.2 cm Liver 13.9 cm smooth contour Normal hepatopedal portal venous flow Patent IVC IMPRESSION: Negative for cholelithiasis, negative for cholecystitis Enlarged common bile duct 0.7 cm, if biliary colic is a clinical consideration, consider MRCP follow-up
[2025-05-24 11:35] LABS: Collection Type, Urine Clean Catch
[2025-05-24] MEDS: SODIUM CHLORIDE 0.9% 1000 ML 1,000 ML 999 ML IV (11:39)
[2025-05-24 11:47] LABS: Bacteria,Urine 3+; Bilirubin,Urine Negative (Negative); Blood,Urine 1+ (Negative); Clarity,Urine Clear (Clear/Hazy); Color,Urine Yellow (Lt Yel-Yel); Glucose, Urine 3+ (Negative); Ketones,Urine Negative (Negative); Leukocyte Esterase,Urine Positive (Negative); Nitrite,Urine Negative (Negative); PH,Urine 6.0 (5.0-7.0); Protein,Urine Trace (Neg - Trace); RBC,Urine 15 /hpf (0-3); Specific Gravity,Urine 1.011 (1.001-1.035); Squamous Epithelial Cell,Urine 3 /hpf (0-5); Urobilinogen,Urine Negative mg/dL (0.0-1.0); WBC,Urine 3 /hpf (0-5)
[2025-05-24 11:53] LABS: Culture Indicated,Urine Yes
[2025-05-24] MEDS: KETOROLAC INJ 30 MG/ML VIAL 15 MG IVP (14:35)
[2025-05-24] MEDS: ONDANSETRON INJ 2 MG/ML INJ 2 ML 4 MG IV (14:35)
[2025-05-24] MEDS: hydrALAZINE INJ 20 MG/ML VIAL 10 MG IVP (17:45)
[2025-05-24] MEDS: LORazepam 2 MG/ML VIAL 1 MG IVP ×2 (17:47→23:27)
--- NOTE | 2025-05-24 18:31 | PD.EDADDENDU ---
Emergency Room Addendum Addendum Narrative: 1800: Care assumed from Dr. Mosquera (emergency physician). Past medical, surgical, social and family history reviewed. Vitals and home medications reviewed. Results and treatment plan discussed. They will assume the care of the patient at this time and will follow the patient, pending MRCP. The following addendum documentation note is intended to reflect any pending information, findings, or radiology results not included in the patient?s initial chart by the previous shift scribe. RADIOLOGY Cholangiopancreatography MRI: Findings: No gallstones identified Gallbladder wall isn't thickened Common bile duct measures 6 mm Coronal image 10 demonstrates 3 mm stone in the common hepatic duct Mild dilatation pancreatic duct No peripancreatic edema No hydronephrosis Mild perinephric stranding IMPRESSION: Normal gallbladder Suspicious for a 3 mm stone in the common hepatic duct 2022: Patient pending transfer for ERCP. 0221: Patient accepted by [facility] for transfer and ERCP. 0600: Transfer for ERC pending bed at [facility]. Patient signed-out to oncoming ED physician at 6 AM.
[2025-05-25] VITALS (13 sets, daily range): BP systolic 96–169; BP diastolic 61–99; PULSE 91–120; RESP 15–23; TEMP 36.5–37.1; O2SAT 97–100
[2025-05-25] MEDS: ONDANSETRON INJ 2 MG/ML INJ 2 ML 4 MG IVP ×3 (06:20→18:53)
[2025-05-25] MEDS: HYDROmorphone INJ 2 MG/ML VIAL 1 MG IVP (06:21)
[2025-05-25] MEDS: PIPER/TAZO 3.375 GM PREMIX 3.375 GM/50 ML BAG IV (06:23)
--- NOTE | 2025-05-25 07:10 | PC.CC ---
Addendum entered by Caroline Lares RN 05/25/25 19:47: 1942 called [facility], spoke to Kelsey and informed grain picker time is 2129. 1929 sent paperwork to [facility] through [employer]. Called [facility], spoke to [facility] and set up the transport. The grain picker time is 2129. 1914 transfer packet is complete with CD inside including dr. villasenor. Pending pt signature, informed charge nurse. Gave transfer packet to charge nurse and number to call for report is on tracker. Addendum entered by Caroline Lares RN 05/25/25 09:28: 0927 called [facility], spoke to Jose Luis for updates. Jose Luis stated still waiting for bed. Original Note: 0710 received handoff from [facility] suppervisor that pt needs to be transferred for 3 mm stone in the common hepatic duct need ERCP/GI services. Patient has been accepted by [facility]. Now pending bed availability.
--- NOTE | 2025-05-25 08:44 | EDNOTE_ITS ---
Emergency Room Addendum <Abby Parks - Last Filed: 05/25/25 17:17> Addendum Narrative: 0600: Care assumed from , the previous shift emergency physician. Past medical, surgical, social and family history reviewed. Vitals and home medications reviewed. I will assume the care of the patient at this time, pending transfer. Please refer to the emergency department record for history and examination from initial visit.?The following addendum documentation note is intended to reflect any pending information, findings, or radiology results not included in the patient?s initial chart. 0820: I spoke with transfer center at [facility] who was requesting an update. Advised the patient has remained stable, is awake, and answering questions. Patient with nausea vomiting, findings concerning for possible choledocholithiasis, pending room availability at [facility] for ERCP. On my assessment patient GCS 15, abdomen soft, continues to have some epigastric pain. Provided patient with medications for symptom relief. Ordered repeat labs given prior labs showed elevation of potassium. Repeat labs with potassium 5.7. Ordered medications for management of hyperkalemia. Patient received IV antibiotics for urinary tract infection as well. Patient is pending bed availability. 1800: Patient signed out to Dr. Villasenor pending bed availability at [facility]. <Destinee Joel MD - Last Filed: 05/25/25 13:29> Addendum Narrative: 0600: Care assumed from , the previous shift emergency physician. Past medical, surgical, social and family history reviewed. Vitals and home medications reviewed. I will assume the care of the patient at this time, pending transfer. Please refer to the emergency department record for history and examination from initial visit.?The following addendum documentation note is intended to reflect any pending information, findings, or radiology results not included in the patient?s initial chart. 0820: I spoke with transfer center at [facility] who was requesting an update. Advised the patient has remained stable, is awake, and answering questions. Patient with nausea vomiting, findings concerning for possible choledocholithiasis, pending room availability at [facility] for ERCP. On my assessment patient GCS 15, abdomen soft, continues to have some epigastric pain. Provided patient with medications for symptom relief. Ordered repeat labs given prior labs showed elevation of potassium. Repeat labs with potassium 5.7. Ordered medications for management of hyperkalemia. Patient received IV antibiotics for urinary tract infection as well. Patient is pending bed availability.
[2025-05-25 10:07] LABS: Alanine Aminotransferase 9 U/L (10-49); Albumin, Serum 3.8 gm/dL (3.5-5.0); Albumin/Globulin Ratio 1.6 (1.2-2.2); Alkaline Phosphatase 59 U/L (46-116); Anion Gap 10 (7-16); Aspartate Amino Transferase 14 U/L (0-34); BUN/Creatinine Ratio 11 Ratio (12-20); Bilirubin,Total 0.5 mg/dL (0.3-1.2); Blood Urea Nitrogen 16 mg/dL (9-23); Calcium 8.8 mg/dL (8.3-10.6); Calcium (Corrected) 9.0 mg/dL (8.5-10.1); Carbon Dioxide 21.3 mMol/L (20.0-31.0); Chloride 107 mMol/L (98-107); Creatinine (Component) 1.4 mg/dL (0.6-1.3); Estimated Creatinine Clearance 44.2 mL/min (>60); Globulin 2.4 gm/dL (2.3-3.5); Glucose 80 mg/dL (74-106); Osmolality,Calculated 275 (275-295); Potassium 5.7 mMol/L (3.4-5.1); Sodium 138 mMol/L (136-145); Total Protein 6.2 gm/dL (5.7-8.2); eGFR 48 See Note
[2025-05-25] MEDS: MORPHINE SULF INJ 10 MG/ML VIAL 4 MG IVP (10:25)
[2025-05-25] MEDS: FUROSEMIDE INJ 10 MG/ML VIAL 2 ML 40 MG IVP (14:06)
[2025-05-25] MEDS: DEXTROSE 50%-WATER INJ 50 ML SYRINGE 100 ML IV (14:06)
[2025-05-25] MEDS: SOD POLYSTYRENE SULFON SUSP 15 GM/60 ML BTL 30 GM PO (14:06)
[2025-05-25] MEDS: INSULIN HUM REGULAR 1 UNIT/0.01 ML (PER UNIT) 5 UNIT IV (14:23)
--- NOTE | 2025-05-25 16:12 | PC.NURSE ---
Called [facility] for neb. tx.
[2025-05-25] MEDS: ALBUTEROL RT 2.5 MG/3 ML NEBU 5 MG INH (16:18)
--- NOTE | 2025-05-25 18:26 | EDNOTE_ITS ---
Emergency Room Addendum Addendum Narrative: 1800: Care assumed from Dr. Joel, the previous shift emergency physician. Past medical, surgical, social and family history reviewed. Vitals and home medications reviewed. Results and treatment plan discussed. I will assume the care of the patient at this time and will follow the patient, pending bed availability at [facility]. Please refer to the emergency department record for history and examination from initial visit. Patient received a bed assignment at [facility]. EMS transport has been set up. She remained stable under my watch.
[2025-05-25] MEDS: MORPHINE SULF INJ 10 MG/ML VIAL 5 MG IVP ×2 (18:53→21:56)
== END 2025-05-25 21:54 | disposition short-term general hospital (02) ==
PROVIDERS: Emergency Medicine; Nurse Practitioner Primary Care; Emergency Provider Emergency Medicine; PCP Family Medicine
DX: K82.8 Other specified diseases of gallbladder (principal); I16.0 Hypertensive urgency; N39.0 Urinary tract infection, site not specified; E87.5 Hyperkalemia; K83.8 Other specified diseases of biliary tract; N20.0 Calculus of kidney; R94.31 Abnormal electrocardiogram [ECG] [EKG]; R00.0 Tachycardia, unspecified
CPT/HCPCS: 36415; 74176; 76705; 80053; 81001; 83690; 84484; 85025; 87086; 93005; 94640; 96361; 96365; 96375; 96376; 99284; J0360; J1171; J1815; J1885; J1938; J2060; J2270; J2405; J2543; J7030; S8037; 74181; A9270

== ENCOUNTER → 2025-07-14 | Outpatient (CLI) | payer MEDICAID, SELFPAY ==
--- NOTE | 2025-07-14 13:00 | XR_ITS ---
Examination: Arterial duplex lower extremity study. Date and time of exam: July 14, 2025 1313 hours INDICATIONS: Onset bilateral leg pain beginning 3 years ago. Findings: Duplex sonographic imaging of the lower extremity arteries using B-mode/Parkinson scale imaging and Doppler spectral analysis and color flow. Ankle brachial indices have been recorded. Right common femoral artery demonstrates triphasic flow. Right superficial femoral artery demonstrates triphasic flow. Right popliteal artery demonstrates triphasic flow. Right posterior tibial artery demonstrated triphasic flow. Right ankle/brachial index is 1.1. Left common femoral artery demonstrates triphasic flow. Left superficial femoral artery demonstrates triphasic flow. Left popliteal artery demonstrates triphasic flow. Left posterior tibial artery demonstrated triphasic flow. Left ankle/brachial index is 1.2. Impression: No significant peripheral obstructive arterial disease There is moderate plaque formation throughout the arterial systems, given this finding, consider correlation with CTA abdominal aorta iliofemoral runoff post contrast as clinically warranted
== END | disposition home or self-care (01) ==
PROVIDERS: PCP Nurse Practitioner Family; Referring Provider Nurse Practitioner Family; Visit Provider Nurse Practitioner Family
DX: I70.203 Unspecified atherosclerosis of native arteries of extremities, bilateral legs (principal)
CPT/HCPCS: 93925

== ENCOUNTER → 2025-08-01 | Outpatient (CLI) | payer MEDICAID, SELFPAY ==
--- NOTE | 2025-08-01 12:30 | XR_ITS ---
Examination: Venous duplex lower extremity sonogram, bilateral. Date and time of exam: August 01, 2025, 1250 hours INDICATIONS: Bilateral leg pain and numbness beginning 4 years ago, diagnosis diabetes, diagnosis hypertension Technique: Multiple sonographic images of the deep venous system have been obtained. B-mode/2-D grayscale imaging of vascular structures and Doppler spectral analysis (waveforms) and color performed Both legs are examined. Findings: Deep venous systems do not demonstrate abnormal echogenicity. All visualized deep veins exhibit compressibility. All visualized deep veins exhibit augmentation. Impression: Negative for deep vein thrombosis
== END | disposition home or self-care (01) ==
LOC: CDIM 12:09
PROVIDERS: PCP Family Medicine; Referring Provider Nurse Practitioner Family; Visit Provider Nurse Practitioner Family
DX: M79.605 Pain in left leg (principal); M79.604 Pain in right leg
CPT/HCPCS: 93970